=== PATIENT | female | born 1945 | race Caucasian/White ===

== ENCOUNTER → 2016-03-30 | Outpatient (CLI) | payer MEDICARE ==
[~2016-03-30] MED LIST: /PRAV20TA PO; /TIOT18INH INH; ACET65TA OR; AMLO10TA OR; ASPI325T OR; ASPI81TA83 OR; COLA100C2 OR; COMBVENT INH; FERR325T PO; GLUC1000 OR; GLUC1000 PO; INSULANT SC; INSULIN LANTUS SC; METF500T4 PO; MULTIVIT OR; NOVO70VL SC; NOVOINJ3 SC; OMEP20TA7 OR; PLAV75TA2 OR; PROZ20CA PO; VICO5TAB OR; ZOCO40TA OR; insulin aspart SC; magnesium oxide OR
--- NOTE | 2016-03-30 22:19 | REP ---
PA chest with left rib series 03/30/2016 Indication: Left-sided rib pain Comparison PA and lateral chest 01/31/2015 Findings: The cardiac silhouette is of upper normal size. There is tortuosity of the thoracic aorta. Small amount of biapical pleural thickening/scarring is again noted without change. There is mild bilateral hyperinflation There is mild mid to lower thoracic dextro scoliosis, unchanged. There is no pneumothorax. The left ribs are without acute fracture or deformity . Small small punctate radiodensity is present in region of left breast tissue, may represent superimposed debris, skin or soft tissue marker. Nuchal clips are present in right upper quadrant. Impression : Cardiac silhouette is of upper normal size. Tortuous thoracic aorta Biapical pleural thickening/scarring Left ribs without fracture or deformity Signed by Kamryn Malik MD 03/30/2016 10:10 P
== END ==
LOC: M LRY 11:49
PROVIDERS: ATTEND Nurse Practitioner Family
DX: I77.1 Stricture of artery (principal); J92.9 Pleural plaque without asbestos
CPT/HCPCS: 71101; G0463

== ENCOUNTER → 2016-05-13 | Outpatient (CLI) | payer MEDICARE ==
--- NOTE | 2016-05-13 13:42 | REP ---
CT LOW DOSE SCREENING LUNGS: Low dose CT imaging is performed on the lungs in the axial plane. Comparison is made with prior CT of 09/11/2011. Scattered interstitial fibrotic changes are again seen bilaterally. Focal benign calcification is seen anteriorly in the right apex. Focal nodular scarring is seen in the right upper lobe and another focal area is seen in the left upper lobe, unchanged. No new suspicious nodular opacities are seen. No consolidative infiltrate is seen. There is no pleural effusion. Heart is upper limits of normal in size. IMPRESSION: Chronic fibrotic changes without suspicious nodular opacity. Signed by Justino Nash MD 05/13/2016 03:56 P
== END ==
LOC: M RAD 12:43
PROVIDERS: ATTEND Nurse Practitioner
DX: F17.200 Nicotine dependence, unspecified, uncomplicated (principal)

== ENCOUNTER → 2016-06-01 | Outpatient (REF) | payer MEDICARE | LOC: M SFHCCLAY 06:38 | PROVIDERS: ATTEND Nurse Practitioner | DX: E11.8 Type 2 diabetes mellitus with unspecified complications (principal); D50.9 Iron deficiency anemia, unspecified; E83.42 Hypomagnesemia | CPT/HCPCS: 80053; 80061; 82728; 83036; 83550; 83735; 85027; G0463 ==

== ENCOUNTER 2016-09-15 10:25 | Observation (INO) | payer MEDICARE, MEDICAID ==
[~2016-09-15] VITALS: Ht 165.1 cm; Wt 54.3 kg
[2016-09-15 12:05] LABS: BASO # 0.1 K/mm3 (0.0-0.2); BASO % 0.6 % (0.0-1.0); EOS % 0.5 % (0.0-3.0); LARGE UNSTAINED CELL # 0.1 K/mm3 (0.0-0.4); LARGE UNSTAINED CELL % 1.2 % (0.0-4.0); LYMPH # 1.3 K/mm3 (1.5-4.5); LYMPH % 13.4 % (24.0-44.0); MEAN CORPUSCULAR HEMOGLOBIN 32.4 pg (27.0-33.0); MEAN CORPUSCULAR HGB CONC 33.6 g/dl (32.0-36.5); MEAN CORPUSCULAR VOLUME 96.5 fl (80.0-96.0); MONO # 0.3 K/mm3 (0.0-0.8); MONO % 3.6 % (0.0-5.0); NEUTROPHILS # 7.3 K/mm3 (1.8-7.7); NEUTROPHILS % 80.8 % (36.0-66.0); PLATELET COUNT, AUTOMATED 334 k/mm3 (150-450); RED CELL DISTRIBUTION WIDTH 12.4 % (11.5-14.5)
[2016-09-15 12:12] LABS: INR 0.91
[2016-09-15 12:25] LABS: ALBUMIN 3.3 GM/DL (3.2-5.2); ALBUMIN/GLOBULIN RATIO 0.92 (1.00-1.93); ALKALINE PHOSPHATASE 80 U/L (45-117); ALT/SGPT 24 U/L (12-78); ANION GAP 6 MEQ/L (8-16); AST/SGOT 21 U/L (15-37); BILIRUBIN,DIRECT < 0.1 MG/DL (0.0-0.2); BILIRUBIN,TOTAL 0.4 MG/DL (0.2-1.0); BLOOD UREA NITROGEN 11 MG/DL (7-18); CALCIUM LEVEL 8.6 MG/DL (8.8-10.2); CARBON DIOXIDE LEVEL 29 MEQ/L (21-32); CHLORIDE LEVEL 102 MEQ/L (98-107); CREATININE FOR GFR 0.52 MG/DL (0.55-1.02); GLOMERULAR FILTRATION RATE > 60.0 (>39); GLUCOSE, FASTING 93 MG/DL (83-110); SODIUM LEVEL 137 MEQ/L (136-145); TOTAL PROTEIN 6.9 GM/DL (6.4-8.2)
[2016-09-15] MEDS ORDERED: GASTROGRAFIN SOLUTION 30ML (Q9963) As Ordered ONE (12:46)
[2016-09-15] MEDS ORDERED: DEXTROSE 50% 50 ML SYRINGE IV STA (12:46)
[2016-09-15] MEDS ORDERED: DEXTROSE 50% 50 ML SYRINGE As Ordered ONE (12:46)
[2016-09-15] MEDS ORDERED: GASTROGRAFIN SOLUTION 30ML PO ONE (12:55)
--- NOTE | 2016-09-15 12:55 | REP ---
Clinical: Cerebrovascular accident. Comparison: 12/14/2010 . Findings: Age-related atrophy and microvascular ischemic changes are appreciated. The ventricles and sulci are symmetric. Nash-white differentiation is maintained. There is no evidence for acute intracranial hemorrhage, mass/mass effect, pathology or infarction. No extra-axial fluid collection. Calvarium is intact. Paranasal sinuses and mastoid air cells are clear. Impression: Age related atrophy and microvascular ischemic changes. No acute intracranial hemorrhage, infarction, or mass/mass effect. Signed by Dougie Corado MD 09/15/2016 12:47 P
[2016-09-15] MEDS ORDERED: GASTROGRAFIN SOLUTION 30ML (Q9963) PO ONE (13:25)
--- NOTE | 2016-09-15 13:32 | REP ---
Clinical: Chest pain and dyspnea. Pneumonia . Comparison: 03/30/2016 . Technique: PA and lateral. Findings: The mediastinum and cardiac silhouette are normal. The lung rossi are clear and without acute consolidation, effusion, or pneumothorax. The skeletal structures are intact and normal. Impression: 1. No acute cardiopulmonary process. Signed by Dougie Corado MD 09/15/2016 01:24 P
[2016-09-15] MEDS ORDERED: ISOVUE-370 76% 100ML VIAL (Q9967) As Ordered ONE (14:14)
--- NOTE | 2016-09-15 15:08 | REP ---
Clinical: Lower abdominal pain. Technique: A axial contrast enhanced images from the lung bases to the pubic symphysis using oral and 100 ml Isovue 370 intravenous contrast material with coronal and sagittal re-formations. Comparison: 12/10/2005. Findings: The lung bases are clear. Visualized heart and pericardium normal. Liver, spleen, pancreas, bilateral adrenal glands and kidneys are normal. The patient is status post cholecystectomy. Moderate to significant retained fecal material suggests fecal stasis and possible ileus with constipation. No bowel obstruction. No acute inflammatory process identified. Pelvis demonstrates normal bladder and evidence of prior hysterectomy. No ascites. No free air. No obvious adenopathy. Abdominal aorta demonstrates atherosclerotic changes without aneurysm. Musculoskeletal structures demonstrate degenerative changes to the lumbosacral spine without focal osseous abnormality. Impression: Moderate to significant retained fecal material suggesting fecal stasis/constipation and ileus. Signed by Dougie Corado MD 09/15/2016 02:59 P
[2016-09-15] MEDS ORDERED: D5W/0.45% SODIUM CHLORIDE 1,000 ML IV SCH ×2 (16:30→21:30)
--- NOTE | 2016-09-15 17:37 | REP ---
MRA BRAIN WITHOUT CONTRAST: HISTORY: Infarction. 3D TOF MR angiography was performed at the level of the [place]. There is no aneurysm or arteriovenous malformation. Mild atherosclerotic disease involves the cavernous internal carotid arteries. 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 There is origin of the right posterior cerebral artery. Major intracranial vessels are patent. The left vertebral artery is dominant. The right vertebral artery terminates in the right posterior inferior cerebellar artery. IMPRESSION: 1. There is no aneurysm or arteriovenous malformation. 2. Atherosclerotic disease as described above. Signed by Villa Liu MD 09/15/2016 06:20 P
[2016-09-15] MEDS ORDERED: MAGN400T PO (18:04)
[2016-09-15] MEDS ORDERED: FLUO20CA8 PO (18:04)
[2016-09-15] MEDS ORDERED: ASPI1TAB PO (18:04)
[2016-09-15] MEDS ORDERED: INSULANT SC ×2 (18:04→18:10)
[2016-09-15] MEDS ORDERED: MAGN420T PO (18:04)
[2016-09-15] MEDS ORDERED: METF10004 PO (18:04)
[2016-09-15] MEDS ORDERED: CLOP75TA2 PO (18:06)
[2016-09-15] MEDS ORDERED: LEVO25TA5 PO (18:06)
[2016-09-15] MEDS ORDERED: REPA1TAB4 PO (18:06)
[2016-09-15] MEDS ORDERED: ZOCO20TA PO (18:10)
--- NOTE | 2016-09-15 18:46 | REP ---
MRI BRAIN WITHOUT CONTRAST: HISTORY: Infarction. COMPARISON: 06/26/[address] 09/15/2016. An area of increased signal intensity on T2-weighted images is present in the right basal ganglia, internal capsule and centrum semiovale. This represents an old lacunar infarction. A small chronic hemorrhagic component is present. Areas of increased signal intensity on T2-weighted images are present in the periventricular and subcortical white matter. This represents small vessel ischemic disease. There is no acute intraparenchymal hemorrhage, acute infarct, mass or midline shift. The ventricular system and cortical sulci are dilated consistent with mild volume loss. There is no extracerebral collection. Mucosal thickening is present in the left maxillary sinus. IMPRESSION: 1. Old right basal ganglia , internal capsule and centrum semiovale lacunar infarction. 2. Small vessel ischemic disease. 3. Mild volume loss. Signed by Villa Liu MD 09/15/2016 07:21 P
[2016-09-15] MEDS ORDERED: ACETAMINOPHEN TAB 650MG DOSE (2X325MG) PO PRN (20:00)
[2016-09-15] MEDS ORDERED: ONDANSETRON 4MG/2ML VIAL (J2405) IV PRN (20:00)
[2016-09-15] MEDS ORDERED: SENNA 8.6 MG TAB (SENOKOT) PO PRN (20:00)
--- NOTE | 2016-09-15 20:48 | HPE ---
DATE OF ADMISSION: 09/15/2016 CHIEF COMPLAINT: 71-year-old female coming in complaining of weakness. HISTORY OF PRESENT ILLNESS: This is a 71-year-old female with significant past medical history of diabetes, old CVA, hypothyroidism, hyperlipidemia, coming in complaining of weakness for 1 week and slurred speech secondary due to weakness when she woke up at 9 a.m. today with generalized abdominal discomfort. Patient states that she felt weak this morning but has been progressively feeling weak within the past week. Today, she checked her sugar and noticed her sugar was 40, ate a donut, her weakness slowly improved and her speech slightly improved, but unfortunately she still felt weak, therefore came to the emergency room for further evaluation. In the emergency room, patient was noted to have a fingerstick of 42 and was given dextrose 50% (D50) and subsequently placed on dextrose 5% (D5) half normal saline upon my recommendation. Patient was evaluated for a stroke, including CT of the head, which did now show any acute process. In addition, patient did have MRI/MRA of the brain which did not find anything acute but did find an old right basal ganglia, internal capsule and centrum semiovale lacunar infarction, small vessel ischemic disease, and mild volume loss, but nothing acute, and Dr. Ambrocio, the neurologist, was consulted by the emergency room (ER) physician who recommended admission and MRI/MRA of the brain. Based on my conversation with the ER physician, it was believed that it was not an official consult at this time. Patient currently utilizes aspirin and Plavix at this time from home. Patient was evaluated in the emergency room. Initially, as per ER physician, NIH scale was zero. On my examination, again, NIH scale was zero. Patient states that her weakness is slightly improved and her speech is slightly improved due to regaining some strength, but still feels weak. Patient has some generalized abdominal discomfort and had a CT of the abdomen which only showed constipation and ileus. Patient otherwise denies of any fever, chills, cough, sputum production. Abdominal pain as mentioned above, but no dysuria or diarrhea. Patient denies of chest pain and shortness of breath, but did have some dizziness associated with the weakness. Currently, dizziness is improved. REVIEW OF SYSTEMS: Ten point review of systems is negative other than those described in the history of present illness (HPI). PAST MEDICAL HISTORY: Significant for diabetes, CVA in the past, hypothyroidism, and hyperlipidemia. SURGICAL HISTORY: Includes a hysterectomy and appendectomy. SOCIAL HISTORY: Patient denies of any alcohol or drug abuse, but smokes half a pack a day "for a long time." ALLERGIES: Patient is allergic to IBUPROFEN, LATEX, PENICILLIN, SULFA, SULFAMETHOXAZOLE and TRIMETHOPRIM. PENICILLIN causes a rash. NONSTEROIDAL ANTI-INFLAMMATORY DRUGS (NSAIDs) also cause difficulty breathing and BACTRIM causes pain. HOME MEDICATIONS: Are as follows: - aspirin 81 mg once a day nightly - Plavix 75 mg nightly - fluoxetine 20 mg by mouth nightly - insulin Lantus 10 units subcutaneous in the morning - Lantus subcutaneous 8 units nightly - Synthroid 25 mcg nightly - magnesium oxide 420 mg times two tablets by mouth nightly - metformin 1000 mg by mouth twice a day - repaglinide 1 mg by mouth twice a day W and M - simvastatin 20 mg by mouth nightly FAMILY MEDICAL HISTORY: Noncontributory at this time. VITAL SIGNS: Temperature: None for me to review at this time. Heart rate is 48, last known blood pressure was 177/81, saturating 96% on room air, again will talk to the ER about repeating vital signs. HEENT: Normocephalic. No trauma noted. Inspection of the eyes, nose, and throat is within normal. Pupils equal, round, and reactive to light and accommodation. Mucous is moist. Neck is supple. No tracheal deviation. CARDIAC: S1, S2, regular rate and rhythm. Pulses present. LUNGS: Equal air entry. Did not hear any wheezes, rales, or rhonchi. ABDOMEN: Soft, nontender. Bowel sounds present. LOWER EXTREMITIES: No significant pitting edema. Capillary refill present in all four extremities. SKIN: Is intact, warm to touch, afebrile. The patient is currently awake, alert and oriented times three. Cranial nerves grossly intact. Motor and sensory is intact. Normal mood and affect for current situation. Patient, again, is awake and alert, answers multiple questions without difficulty. Performs multiple tasks without difficulty. Has normal gaze, normal visual field, no facial palsy noted. Upper and lower extremity no motor drift. No limb ataxia noted. Sensory is intact. No aphasia. No dysarthria. Extension and attention intact. Patient states that her speech is improved, but she still feels weak. DIAGNOSTIC STUDY: Patient had a WBC, hemoglobin and hematocrit, all within normal. Complete metabolic profile is within normal except for creatinine of 0.52, calcium is 8.6. Cardiac enzymes within normal. Lipase is within normal. Coagulation studies: INR is within normal, PT is 12.3. Urinalysis is negative for a urinary tract infection but does show glucose of 1. Miscellaneously, patient had a glucose of 42 initially and improved to 149 after therapy. Patient's urine culture is pending. CT of the head, as per radiology, showed age related atrophy and microvascular ischemic changes. No acute intracranial hemorrhage, infarction, or mass effect. Chest x-ray, as per radiology, showed no acute cardiopulmonary process. Abdominal CT showed moderate to significant retained fecal material suggesting a fecal stasis, constipation, and ileus. Brain MRI showed, as per radiology, old right basal ganglia, internal capsule, and centrum semiovale lacunar infarction, small vessel ischemic disease, and mild volume loss. MRA of the brain showed no aneurysm or arteriovenous (AV) malformation. Atherosclerotic disease. On the EKG, patient has a heart rate of 50, sinus bradycardia. ASSESSMENT AND PLAN: This is a 71-year-old female with significant past medical history of diabetes, old CVA, hypothyroidism, hyperlipidemia, who presents complaining of weakness and slurring speech at 9 a.m. this morning. 1. Weakness and slurring of speech, most likely secondary due to hypoglycemia. At this time, patient to resume dextrose 5% (D5) half normal saline and hold Lantus, metformin, and repaglinide. Patient's MRI/MRA has been negative for any acute process. Will defer further evaluation by neurology consult to the morning team. 2. Old CVA history. Resume aspirin and Plavix. Again, defer neurology consult to the morning team. 3. Fecal stasis, constipation/ileus. Gentle IV fluid as mentioned above. Stool softener with Senna and MiraLAX. On my examination, patient did not have any guarding nor rigidity and no rebound tenderness. Continue to monitor for bowel movement. Will defer any need for surgical consult to the morning team. 4. Bradycardia. Asymptomatic. Treat problem #1. Continue to monitor. 5. Hypothyroidism. Resume Synthroid. 6. Hyperlipidemia. Resume simvastatin. 7. Resume fluoxetine. 8. Deep venous thrombosis (DVT) prophylaxis. 9. Smoking cessation was strongly advised, will offer a nicotine patch.
[2016-09-15] MEDS ORDERED: GLUCOSE 4 GM CHEW TABLET PO PRN (21:30)
[2016-09-15] MEDS ORDERED: DEXTROSE 50% 50 ML SYRINGE IV PRN (21:30)
[2016-09-15] MEDS ORDERED: GLUCAGON FOR INJ 1 MG VIAL (J1610) SC PRN (21:30)
[2016-09-15] MEDS: HumaLOG INSULIN (NovoLOG) PER UNIT SC SCH (22:20)
[2016-09-15 22:30] VITALS: BP 146/67
[2016-09-15] MEDS: SIMVASTATIN 20 MG TAB PO SCH (22:59)
[2016-09-15] MEDS: LEVOTHYROXINE 25MCG TABLET (0.025MG) PO SCH (22:59)
[2016-09-15] MEDS: CLOPIDOGREL 75 MG TAB PO SCH (22:59)
[2016-09-15] MEDS: ASPIRIN 81 MG ENTERIC TAB PO SCH (22:59)
[2016-09-15] MEDS: FLUoxetine 20 MG CAP PO SCH (22:59)
[2016-09-15] MEDS: HEPARIN SOD (PORCINE) 5000 UNITS/ML VIAL SC SCH (23:00)
[2016-09-16 04:00] VITALS: BP 134/62
[2016-09-16] MEDS: HEPARIN SOD (PORCINE) 5000 UNITS/ML VIAL SC SCH ×3 (06:15→21:38)
[2016-09-16] MEDS: HumaLOG INSULIN (NovoLOG) PER UNIT SC SCH ×4 (07:30→21:40)
--- NOTE | 2016-09-16 07:33 | ECGEPIP ---
Stationary ECG Study [facility] - ED Test Date: 2016-09-15 Pat Name: BERNA MAY Department: Room: - Gender: F [employer] War[employer] Operator: OSCAR : 1945 Requested By: Komal Barrios Order Number: [id number] Reading MD: Komal Barrios Measurements Intervals [place] Rate: 50 P: 65 AR: 153 QRS: 75 QRSD: 88 T: 65 QT: 469 QTc: 429 Interpretive Statements SINUS BRADYCARDIA ?INFERIOR INFARCT NSTTW ABNORMALITY Electronically Signed On 09-16-2016 7:33:25 EDT by Komal Barrios
[2016-09-16 08:00] VITALS: BP 155/66
[2016-09-16 08:33] LABS: BASO % 0.7 % (0.0-1.0); EOS # 0.2 K/mm3 (0.0-0.50); EOS % 2.2 % (0.0-3.0); LARGE UNSTAINED CELL # 0.1 K/mm3 (0.0-0.4); LYMPH # 1.4 K/mm3 (1.5-4.5); LYMPH % 19.9 % (24.0-44.0); MEAN CORPUSCULAR HEMOGLOBIN 32.9 pg (27.0-33.0); MEAN CORPUSCULAR HGB CONC 33.4 g/dl (32.0-36.5); MEAN CORPUSCULAR VOLUME 98.4 fl (80.0-96.0); MONO # 0.4 K/mm3 (0.0-0.8); MONO % 5.3 % (0.0-5.0); NEUTROPHILS # 4.9 K/mm3 (1.8-7.7); NEUTROPHILS % 69.9 % (36.0-66.0); PLATELET COUNT, AUTOMATED 332 k/mm3 (150-450); RED CELL DISTRIBUTION WIDTH 12.4 % (11.5-14.5)
[2016-09-16] MEDS: MIRALAX *UNIT DOSE* 17GM PACKET PO SCH (08:48)
[2016-09-16] MEDS: NICOTINE 7 MG/24 HR TRANSDERMAL TD SCH (08:49)
[2016-09-16 09:43] LABS: ANION GAP 4 MEQ/L (8-16); BLOOD UREA NITROGEN 6 MG/DL (7-18); CALCIUM LEVEL 8.8 MG/DL (8.8-10.2); CARBON DIOXIDE LEVEL 32 MEQ/L (21-32); CHLORIDE LEVEL 102 MEQ/L (98-107); CREATININE FOR GFR 0.63 MG/DL (0.55-1.02); GLOMERULAR FILTRATION RATE > 60.0 (>39); GLUCOSE, FASTING 323 MG/DL (83-110); POTASSIUM SERUM 4.3 MEQ/L (3.5-5.1); SODIUM LEVEL 138 MEQ/L (136-145)
[2016-09-16 12:00] VITALS: BP 118/67
[2016-09-16 17:20] VITALS: BP 143/65
--- NOTE | 2016-09-16 17:34 | IPNPDOC ---
Subjective Date Seen The patient was seen on 09/16/16. Subjective Chief Complaint/HPI The patient is a 71-year-old female admitted with a reason for visit of Bradycardia,Constipation,Hypoglycemia,Ileus. Events since last encounter She reports that she's had decreased episodes of the vague confusion feeling in her head since she was admitted. She is still having some symptoms however. She was noted to be hypoglycemic a couple times while down in the ER. However, when I question her further it seems that many of these symptoms have been going on for 2 months or more; they have just became more intense in the last couple days which encouraged her her to seek care. General: Reports: Fatigue Constitutional: Reports: Malaise, Denies: Chills, Fever Eyes: Denies: Eyelid inflammation Skin: Denies: Jaundice, Breakdown Pulmonary: Denies: Cough Cardiovascular: Denies: Chest Pain, Palpitations Gastrointestinal: Reports: Constipation Genitourinary: Denies: Dysuria Hematologic: Denies: Bruising Neurological: Reports: Weakness, Numbness, Incoordination, Change in speech, Confusion, Denies: Seizures Psych: Reports: Anxiety Objective Physical Examination General Exam: Positive: Alert, Cooperative, No Acute Distress Eye Exam: Positive: PERRLA, Negative: Sclera icteric ENT Exam: Positive: Mucous membr. moist/pink, Tongue Midline Neck Exam: Negative: Lymphadenopathy Chest Exam: Positive: Clear to auscultation, Normal air movement Heart Exam: Positive: Rate Normal, Normal S1, Normal S2, Negative: Murmurs Abdomen Exam: Positive: Normal bowel sounds, Soft, Negative: Tenderness Extremity Exam: Negative: Edema Neuro Exam: Positive: Strength at 5/5 X4 ext, Cranial Nerves 3-12 NL, Negative: Normal Speech (she occasionally searches for words or pauses longer than would be typical in normal speech) Psych Exam: Positive: Anxiety, Oriented x 3 Assessment /Plan Problems (1) Weakness Status: Acute Discussed With: Nurse, Patient Problem Specific Plan: Monitor Clinically, Repeat Labs Problem Text: It is hard for me to tell whether this is truly an acute problem or an acute exacerbation of a long-standing existing problem. Right now we'll continue to follow her current treatment plan which includes ensuring she doesn' t go hypoglycemic again. However if her blood glucose levels remain reasonable she still is symptomatic, I think we should engage neurology to help us determine whether this is really an acute exacerbation of a chronic neurologic problem. (2) Hypoglycemia Status: Acute Response to Treatment: Improving Discussed With: Patient Problem Specific Plan: Monitor Clinically, Repeat Labs Problem Text: It is not clear to me why she became hypoglycemic. We've held her regimen for now. We will monitor carefully overnight. (3) Ileus Status: Acute Response to Treatment: Improving Problem Specific Plan: Monitor Clinically (4) Bradycardia Status: Chronic Response to Treatment: Stable Problem Specific Plan: Monitor Clinically (5) H/O: CVA (cerebrovascular accident) Problem Specific Plan: Monitor Clinically Problem Text: I don't think her current symptoms are related to an acute stroke , especially because she had a negative MRI/MRA on admission. However I do think we should continue to monitor her and I ordered every 4 hours neuro checks to assist us with this monitoring. Plan/VTE VTE Prophylaxis Ordered?: Yes (subcutaneous heparin) VS, I&O, 24H, Fishbone Vital Signs/I&O Vital Signs Date Time Temp Pulse Resp B/P (MAP) Pulse Ox O2 Delivery O2 Flow Rate FiO2 09/16/16 12:00 98.0 66 20 118/67 (84) 96 Room Air I&O- Last 24 Hours up to 6 AM 09/16/16 06:00 Intake Total 780 ml Output Total 50 ml Balance 730 ml Laboratory Data 24H LABS Laboratory Tests 2 09/15/16 20:17: Total Creatine Kinase 93, Creatine Kinase MB 1.9, Creatine Kinase MB Relative Index 2.04, Troponin I < 0.02 09/15/16 22:04: Bedside Glucose (Misc Panel) 71L 09/15/16 22:31: Bedside Glucose (Misc Panel) 51L 09/15/16 22:46: Bedside Glucose (Misc Panel) 187H 09/16/16 05:17: Total Creatine Kinase 82, Creatine Kinase MB 1.3, Creatine Kinase MB Relative Index 1.58, Troponin I < 0.02 09/16/16 06:33: Bedside Glucose (Misc Panel) 399H 09/16/16 07:53: White Blood Count 7.0, Red Blood Count 4.35, Hemoglobin 14.3, Hematocrit 42.8, Mean Corpuscular Volume 98.4H, Mean Corpuscular Hemoglobin 32.9, Mean Corpuscular Hemoglobin Concent 33.4, Red Cell Distribution Width 12.4, Platelet Count 332, Neutrophils (%) (Auto) 69.9H, Lymphocytes (%) (Auto) 19.9L, Monocytes (%) (Auto) 5.3H, Eosinophils (%) (Auto) 2.2, Basophils (%) (Auto) 0.7 , Neutrophils # (Auto) 4.9, Lymphocytes # (Auto) 1.4L, Monocytes # (Auto) 0.4, Eosinophils # (Auto) 0.2, Basophils # (Auto) 0.0, Large Unclassified Cells % 2.0 , Large Unclassified Cells # 0.1, Anion Gap 4L, Glomerular Filtration Rate > 60.0, Blood Urea Nitrogen 6L, Creatinine 0.63, Sodium Level 138, Potassium Level 4.3, Chloride Level 102, Carbon Dioxide Level 32, Calcium Level 8.8 09/16/16 11:35: Bedside Glucose (Misc Panel) 106 09/16/16 12:13: Total Creatine Kinase 82, Creatine Kinase MB 1.4, Creatine Kinase MB Relative Index 1.70, Troponin I < 0.02 CBC/BMP Laboratory Tests 09/16/16 07:53 Red Blood Count 4.35, Mean Corpuscular Volume 98.4 H, Mean Corpuscular Hemoglobin 32.9, Mean Corpuscular Hemoglobin Concent 33.4, Red Cell Distribution Width 12.4, Neutrophils (%) (Auto) 69.9 H, Lymphocytes (%) (Auto) 19.9 L, Monocytes (%) (Auto) 5.3 H, Eosinophils (%) (Auto) 2.2, Basophils (%) ( Auto) 0.7, Neutrophils # (Auto) 4.9, Lymphocytes # (Auto) 1.4 L, Monocytes # ( Auto) 0.4, Eosinophils # (Auto) 0.2, Basophils # (Auto) 0.0, Calcium Level 8.8 Microbiology Microbiology 09/15/16 Urine Culture, Received Pending Alber Adler MD Sep 16, 2016 17:34
[2016-09-16 20:00] VITALS: BP 120/59
[2016-09-16] MEDS: ASPIRIN 81 MG ENTERIC TAB PO SCH (21:38)
[2016-09-16] MEDS: SIMVASTATIN 20 MG TAB PO SCH (21:38)
[2016-09-16] MEDS: FLUoxetine 20 MG CAP PO SCH (21:38)
[2016-09-16] MEDS: LEVOTHYROXINE 25MCG TABLET (0.025MG) PO SCH (21:38)
[2016-09-16] MEDS: CLOPIDOGREL 75 MG TAB PO SCH (21:38)
[2016-09-17] VITALS: BP 122/57
[2016-09-17] MEDS ORDERED: SLF 3 ML SYR IV PRN (00:45)
[2016-09-17 04:00] VITALS: BP 135/73
[2016-09-17] MEDS: HEPARIN SOD (PORCINE) 5000 UNITS/ML VIAL SC SCH ×2 (05:22→13:40)
[2016-09-17] MEDS: SLF 3 ML SYR IV SCH ×2 (05:22→13:40)
[2016-09-17] MEDS: NICOTINE 7 MG/24 HR TRANSDERMAL TD SCH (07:48)
[2016-09-17] MEDS: MIRALAX *UNIT DOSE* 17GM PACKET PO SCH (07:48)
[2016-09-17] MEDS: HumaLOG INSULIN (NovoLOG) PER UNIT SC SCH ×2 (07:50→12:31)
[2016-09-17 08:00] VITALS: BP 120/59
[2016-09-17 08:04] VITALS: BP 119/60
[2016-09-17 08:08] VITALS: BP 120/62
[2016-09-17] MEDS ORDERED: PREVNAR 13 VACCINE SYRINGE (CPT CODE:90670) IM ONE (15:00)
--- NOTE | 2016-09-18 08:06 | DSES ---
DATE OF ADMISSION: 09/15/2016 DATE OF DISCHARGE: 09/17/2016 ATTENDING PHYSICIAN: Dr. Alber Adler PRIMARY CARE PROVIDER: Sosa Mckeon HISTORY OF PRESENT ILLNESS: A 71-year-old female who presented to [facility] Emergency Room for complaints of weakness and generalized abdominal discomfort. The patient was noted to have hypoglycemia on presentation to the emergency room with minimal improvement of blood sugar after eating a doughnut, improved to 42. The patient was given D50 in the emergency room (ER) and dextrose half-normal saline intravenous (IV) fluids with improvement in the blood sugars. Workup in the emergency department (ED) included CT head, MRI, MRA, all of which were negative. CT abdomen and pelvis was obtained. It showed moderate to significant retained fecal material, suggesting fecal stasis constipation and ileus. The patient was subsequently admitted to the family medicine service. HOSPITAL COURSE: The patient had five bowel movements within the last 48 hours and had significant improvement in her abdominal pain. Blood sugars have remained stable throughout hospitalization, and the patient has continued to eat regularly during hospitalization. All of her diabetes medications were held. Physical therapy evaluated the patient today and deemed the patient appropriate to go home. However, recommending physical therapy evaluation within the home to evaluate for equipment needs and home safety. The patient did admit that she does seem to skip meals throughout the day, which she understands contributes to her hypoglycemia. She states she has been diabetic for the last 10-20 years. Was never diabetic as a child, so her history is more consistent with type 2 diabetes. On physical examination today, laboratories show sodium of 138, potassium 4.3, BUN 6, with a creatinine of 0.63, GFR greater than 60. The patient's cardiac enzymes were reviewed, and all were negative. Most recent hemoglobin and hematocrit are 14 and 42. General: The patient is resting comfortably combing her hair when I enter the room. She is alert and oriented times three. HEENT: Neck is supple without lymphadenopathy or jugular venous distention (JVD). Cardiovascular: Heart rate and rhythm are regular. Pulmonary: Lungs are clear to auscultation bilaterally. Abdomen is soft and nontender with positive bowel sounds in all four quadrants. Bilateral lower extremities are without any edema. Neurologic: She is alert and oriented times three. No resting tremor is appreciated. Psychiatric: Affect is flat. Conversation is appropriate and congruent. However, the patient is restrictive in her responses. ASSESSMENT/DISCHARGE DIAGNOSES: 1. Hypoglycemia. 2. Weakness. 3. Ileus. 4. Bradycardia. SECONDARY DIAGNOSES: 1. History of cerebrovascular accident (CVA). 2. History of insulin-dependent diabetes. 3. History of hypothyroidism. 4. History of hyperlipidemia. PLAN: The patient will be discharged home. Diet is carbohydrate-consistent. She is to monitor her blood sugars fasting and 2 hours postprandial on a daily basis and is also to log her food intake. Activity is to ambulate with the walker that she has at home, and we will send in Public Health to further evaluate what type of adaptive equipment she may need. She will followup with Dr. Dk Neff on 08/25/2016 at 11:30. The patient is discharged in stable and satisfactory condition with no further questions at time of discharge.
== END 2016-09-17 15:12 | disposition home health service (06) ==
LOC: M ED 10:25 → M ED INP 19:52 → M PCU 09-16 17:15
PROVIDERS: ADMIT Internal Medicine; ATTEND Family Medicine
DX: E16.2 Hypoglycemia, unspecified (principal); R53.1 Weakness; K56.7 Ileus, unspecified; R00.1 Bradycardia, unspecified; E11.9 Type 2 diabetes mellitus without complications; Z79.4 Long term (current) use of insulin; Z86.73 Personal history of transient ischemic attack (TIA), and cerebral infarction without residual deficits; E03.9 Hypothyroidism, unspecified; E78.4 Other hyperlipidemia; Z79.02 Long term (current) use of antithrombotics/antiplatelets; Z79.82 Long term (current) use of aspirin; Z79.899 Other long term (current) drug therapy
CPT/HCPCS: 36415; 51701; 70450; 70544; 70551; 71020; 74177; 80048; 80076; 81001; 82550; 82553; 83690; 84484; 85025; 85610; 87086; 93005; 93041; 96374; 96376; 97162; 97165; 99285; G0378; Q9963; Q9967

== ENCOUNTER → 2016-09-24 | Outpatient (REF) | payer MEDICARE ==
[~2016-09-24] MED LIST changes: +ASPI1TAB PO; +CLOP75TA2 PO; +FLUO20CA8 PO; +LEVO25TA5 PO; +MAGN400T PO; +MAGN420T PO; +METF10004 PO; +REPA1TAB4 PO; +ZOCO20TA PO
[2016-10-02 00:08] LABS: INSULIN ANTIBODY 10 uU/mL (.); ISLET CELL ANTIBODIES Negative (Neg:<1:1)
== END ==
LOC: M SFHCCLAY 12:39
PROVIDERS: ATTEND Family Medicine
DX: E11.8 Type 2 diabetes mellitus with unspecified complications (principal); Z79.4 Long term (current) use of insulin
CPT/HCPCS: 82948; 83525; 84681; 86337; 86341; G0463

== ENCOUNTER → 2016-10-14 | Outpatient (REF) | payer MEDICARE | LOC: M SFHCCLAY 11:51 | PROVIDERS: ATTEND Nurse Practitioner | DX: E11.8 Type 2 diabetes mellitus with unspecified complications (principal); N30.90 Cystitis, unspecified without hematuria | CPT/HCPCS: 81002; 87086; G0463 ==

== ENCOUNTER → 2017-01-13 | Outpatient (REF) | payer MEDICARE ==
[2017-01-14 12:00] LABS: ALBUMIN 3.7 GM/DL (3.2-5.2); ALBUMIN/GLOBULIN RATIO 1.09 (1.00-1.93); ALKALINE PHOSPHATASE 89 U/L (45-117); ALT/SGPT 19 U/L (12-78); ANION GAP 6 MEQ/L (8-16); AST/SGOT 17 U/L (7-37); BILIRUBIN,TOTAL 0.4 MG/DL (0.2-1.0); BLOOD UREA NITROGEN 9 MG/DL (7-18); CALCIUM LEVEL 9.1 MG/DL (8.8-10.2); CARBON DIOXIDE LEVEL 31 MEQ/L (21-32); CHLORIDE LEVEL 102 MEQ/L (98-107); CREATININE FOR GFR 0.52 MG/DL (0.55-1.02); GLOMERULAR FILTRATION RATE > 60.0 (>39); GLUCOSE, FASTING 53 MG/DL (83-110); POTASSIUM SERUM 3.9 MEQ/L (3.5-5.1); SODIUM LEVEL 139 MEQ/L (136-145); TOTAL PROTEIN 7.1 GM/DL (6.4-8.2)
== END ==
LOC: M SFHCCLAY 14:31
PROVIDERS: ATTEND Family Medicine
DX: E11.8 Type 2 diabetes mellitus with unspecified complications (principal)
CPT/HCPCS: 80053; 82043; 83036; G0463

== ENCOUNTER → 2017-03-10 | Outpatient (CLI) | payer MEDICARE | LOC: M RAD 14:05 | DX: M25.512 Pain in left shoulder (principal); M75.31 Calcific tendinitis of right shoulder | CPT/HCPCS: 73030 ==

== ENCOUNTER → 2017-06-01 | Outpatient (REF) | payer MEDICARE ==
[2017-06-02 12:02] LABS: ALBUMIN 3.8 GM/DL (3.2-5.2); ANION GAP 5 MEQ/L (8-16); BLOOD UREA NITROGEN 13 MG/DL (7-18); CALCIUM LEVEL 9.3 MG/DL (8.8-10.2); CARBON DIOXIDE LEVEL 32 MEQ/L (21-32); CHLORIDE LEVEL 98 MEQ/L (98-107); CREATININE FOR GFR 0.75 MG/DL (0.55-1.30); FREE T4 0.94 NG/DL (0.76-1.46); GLOMERULAR FILTRATION RATE > 60.0 (>39); GLUCOSE, FASTING 303 MG/DL (70-100); PHOSPHORUS LEVEL 3.2 MG/DL (2.5-4.9); POTASSIUM SERUM 4.4 MEQ/L (3.5-5.1); SODIUM LEVEL 135 MEQ/L (136-145)
== END ==
LOC: M SFHCCLAY 15:20
DX: E10.9 Type 1 diabetes mellitus without complications (principal)
CPT/HCPCS: 83021

== ENCOUNTER → 2017-09-13 | Outpatient (REF) | payer MEDICARE | LOC: M SFHCLERA 18:34 | DX: J02.9 Acute pharyngitis, unspecified (principal) ==

== ENCOUNTER → 2017-12-22 | Outpatient (REF) | payer MEDICARE ==
[2017-12-22 17:12] LABS: ANION GAP 7 MEQ/L (8-16); BLOOD UREA NITROGEN 12 MG/DL (7-18); CALCIUM LEVEL 9.3 MG/DL (8.8-10.2); CARBON DIOXIDE LEVEL 32 MEQ/L (21-32); CHLORIDE LEVEL 102 MEQ/L (98-107); CREATININE FOR GFR 0.67 MG/DL (0.55-1.30); GLOMERULAR FILTRATION RATE > 60.0 (>39); GLUCOSE, FASTING 253 MG/DL (70-100); POTASSIUM SERUM 4.8 MEQ/L (3.5-5.1); SODIUM LEVEL 141 MEQ/L (136-145)
[2017-12-22 17:26] LABS: ESTIMATED AVERAGE GLUCOSE 209 MG/DL (60-110); HEMOGLOBIN A1c 8.9 %
[2017-12-22 17:33] LABS: CREATININE, URINE 87.4 MG/DL; MALB URINE SIEMENS 25.6 MG/L
[2017-12-22 17:57] LABS: MAU/CREAT RATIO 29.3 MCG/MG (0.0-30.0)
== END ==
LOC: M SFHCCLAY 07:25
DX: E10.9 Type 1 diabetes mellitus without complications (principal); Z79.4 Long term (current) use of insulin
CPT/HCPCS: 83036

== ENCOUNTER → 2018-01-16 | Outpatient (CLI) | payer MEDICARE | LOC: M RAD 11:14 | DX: Z12.31 Encounter for screening mammogram for malignant neoplasm of breast (principal) | CPT/HCPCS: 77067 ==

== ENCOUNTER → 2018-03-22 | Outpatient (REF) | payer MEDICARE ==
[2018-03-22 18:15] LABS: BLOOD UREA NITROGEN 12 MG/DL (7-18); CARBON DIOXIDE LEVEL 30 MEQ/L (21-32); CHLORIDE LEVEL 98 MEQ/L (98-107); CREATININE FOR GFR 0.71 MG/DL (0.55-1.30); GLOMERULAR FILTRATION RATE > 60.0 (>39); GLUCOSE, FASTING 295 MG/DL (70-100); POTASSIUM SERUM 4.4 MEQ/L (3.5-5.1); SODIUM LEVEL 133 MEQ/L (136-145)
[2018-03-22 18:40] LABS: HEMOGLOBIN A1c 9.9 %
== END ==
LOC: M SFHCCLAY 12:42
PROVIDERS: ATTEND Family Medicine
DX: E10.40 Type 1 diabetes mellitus with diabetic neuropathy, unspecified (principal); E03.9 Hypothyroidism, unspecified; Z23 Encounter for immunization
CPT/HCPCS: 80048; 83036; 84439; 84443; 90682; G0008; G0463

== ENCOUNTER → 2018-04-11 | Outpatient (REF) | payer MEDICARE | LOC: M SFHCLERA 13:19 | PROVIDERS: ATTEND Nurse Practitioner Family | DX: R34 Anuria and oliguria (principal) | CPT/HCPCS: 81002; 87088; 87186; 90471; 90715; G0463 ==

== ENCOUNTER 2018-04-14 13:13 | Emergency (ER) | payer MEDICARE ==
[~2018-04-14] VITALS: Ht 172.7 cm; Wt 58.2 kg
[2018-04-14 14:48] LABS: BASO # 0.1 10^3/uL (0.0-0.2); BASO % 0.9 % (0.0-1.0); EOS # 0.2 10^3/uL (0.0-0.50); EOS % 1.9 % (0.0-3.0); HEMATOCRIT 40.8 % (36.0-47.0); LYMPH # 2.4 10^3/uL (1.5-4.5); MEAN CORPUSCULAR HEMOGLOBIN 32.3 pg (27.0-33.0); MEAN CORPUSCULAR HGB CONC 34.3 g/dl (32.0-36.5); MONO # 0.5 10^3/uL (0.0-0.8); MONO % 6.8 % (0.0-5.0); NEUTROPHILS # 4.6 10^3/uL (1.8-7.7); NEUTROPHILS % 59.3 % (36.0-66.0); PLATELET COUNT, AUTOMATED 278 10^3/uL (150-450); RED BLOOD COUNT 4.34 10^6/uL (4.00-5.40); WHITE BLOOD COUNT 7.8 10^3/uL (4.0-10.0)
[2018-04-14 15:08] LABS: BLOOD UREA NITROGEN 13 MG/DL (7-18); CALCIUM LEVEL 8.9 MG/DL (8.8-10.2); CARBON DIOXIDE LEVEL 30 MEQ/L (21-32); CHLORIDE LEVEL 102 MEQ/L (98-107); CREATININE FOR GFR 0.56 MG/DL (0.55-1.30); GLOMERULAR FILTRATION RATE > 60.0 (>39); GLUCOSE, FASTING 90 MG/DL (70-100); SODIUM LEVEL 137 MEQ/L (136-145)
[2018-04-14 15:27] VITALS: BP 135/64
== END 2018-04-14 15:28 | disposition home or self-care (01) ==
LOC: M ED 13:13
DX: R39.198 Other difficulties with micturition (principal); I10 Essential (primary) hypertension; J44.9 Chronic obstructive pulmonary disease, unspecified; F17.210 Nicotine dependence, cigarettes, uncomplicated; Z87.19 Personal history of other diseases of the digestive system; Z87.440 Personal history of urinary (tract) infections; Z88.8 Allergy status to other drugs, medicaments and biological substances; Z88.2 Allergy status to sulfonamides; Z88.0 Allergy status to penicillin; Z79.899 Other long term (current) drug therapy; Z79.82 Long term (current) use of aspirin; Z79.02 Long term (current) use of antithrombotics/antiplatelets

== ENCOUNTER → 2018-04-29 | Outpatient (CLI) | payer MEDICARE | LOC: M LAB 12:26 | PROVIDERS: ATTEND Family Medicine | DX: E10.40 Type 1 diabetes mellitus with diabetic neuropathy, unspecified (principal) ==

== ENCOUNTER → 2018-05-02 | Outpatient (REF) | payer MEDICARE ==
[2018-05-03 14:16] LABS: HEMOGLOBIN A1c 9.9 %
== END ==
LOC: M SFHCCLAY 14:57
PROVIDERS: ATTEND Family Medicine
DX: R33.9 Retention of urine, unspecified (principal); E10.40 Type 1 diabetes mellitus with diabetic neuropathy, unspecified
CPT/HCPCS: 83036; G0463

== ENCOUNTER → 2018-05-19 | Outpatient (CLI) | payer MEDICARE | LOC: M LAB 15:58 | PROVIDERS: ATTEND Family Medicine | DX: E10.40 Type 1 diabetes mellitus with diabetic neuropathy, unspecified (principal) ==

== ENCOUNTER → 2018-05-19 | Outpatient (REF) | payer MEDICARE ==
[2018-05-19 18:33] LABS: AMORPHOUS SEDIMENT SMALL (NEGATIVE); BACTERIA, URINE AUTO 1+ (NEGATIVE); MUCUS, URINE SMALL (NEGATIVE); RBC, URINE AUTO 2 /HPF (0-3); SQUAMOUS EPITHELIAL CELL UR AU 5 /HPF (0-6); WBC, URINE AUTO 0 /HPF (0-3)
== END ==
LOC: M SMT 16:58
PROVIDERS: ATTEND Specialist
DX: R39.198 Other difficulties with micturition (principal); E10.40 Type 1 diabetes mellitus with diabetic neuropathy, unspecified
CPT/HCPCS: 36415; 81015; 82947; 87086; G0463

== ENCOUNTER → 2018-06-08 | Outpatient (CLI) | payer MEDICARE | LOC: M LAB 12:32 | PROVIDERS: ATTEND Family Medicine | DX: E10.40 Type 1 diabetes mellitus with diabetic neuropathy, unspecified (principal) ==

== ENCOUNTER → 2018-08-01 | Outpatient (REF) | payer MEDICARE ==
[~2018-08-01] MED LIST changes: -/PRAV20TA PO; -/TIOT18INH INH; -ASPI1TAB PO; +ASPI81TA26 PO; +PRAV1TAB39 PO; +SPIR1CAP INH
== END ==
LOC: M SFHCLERA 15:47
PROVIDERS: ATTEND Nurse Practitioner Family
DX: J02.9 Acute pharyngitis, unspecified (principal)

== ENCOUNTER → 2018-08-22 | Outpatient (REF) | payer MEDICARE ==
[2018-08-22 17:02] LABS: BLOOD UREA NITROGEN 10 MG/DL (7-18); CALCIUM LEVEL 9.5 MG/DL (8.8-10.2); CARBON DIOXIDE LEVEL 31 MEQ/L (21-32); CHLORIDE LEVEL 103 MEQ/L (98-107); CREATININE FOR GFR 0.63 MG/DL (0.55-1.30); GLOMERULAR FILTRATION RATE > 60.0 (>39); GLUCOSE, FASTING 118 MG/DL (70-100); POTASSIUM SERUM 4.5 MEQ/L (3.5-5.1); SODIUM LEVEL 139 MEQ/L (136-145)
== END ==
LOC: M SFHCCLAY 10:21
PROVIDERS: ATTEND Family Medicine
DX: E10.9 Type 1 diabetes mellitus without complications (principal)
CPT/HCPCS: 80048; 83036; G0463

== ENCOUNTER → 2018-10-25 | Outpatient (REF) | payer MEDICARE ==
[2018-10-25 22:24] LABS: CHLAMYDIA DNA AMPLIFICATION NEGATIVE (NEGATIVE); GC DNA AMPLIFICATION NEGATIVE (NEGATIVE)
== END ==
LOC: M SFHCLERA 13:56
PROVIDERS: ATTEND Nurse Practitioner Family
DX: R30.0 Dysuria (principal)
CPT/HCPCS: 81002; 87088; 87186; 87661; G0463

== ENCOUNTER → 2019-01-19 | Outpatient (CLI) | payer MEDICARE, MEDICAID ==
[~2019-01-19] MED LIST changes: -MAGN400T PO; +MAGN400T3 PO
--- NOTE | 2019-01-19 17:08 | REP ---
Chest x-ray: Two views. History: Cough. Comparison chest x-ray: September 15, 2016. Findings: The lungs are symmetrically aerated and free of infiltrate. Pleural angles are sharp. Heart is mildly enlarged. Cardiothoracic ratio measures 53.2%. The aorta is calcific and tortuous. Pulmonary vasculature is not increased. No infiltrate is seen. There is a dextroconvex curvature in the lower thoracic spine. There are clips in right upper quadrant. Impression: Mild cardiomegaly. No infiltrate seen. Electronically Signed by Sagar Still MD 01/19/2019 05:21 P
== END ==
LOC: M CLY 14:55
PROVIDERS: ATTEND Family Medicine
DX: I51.7 Cardiomegaly (principal); R05 Cough; R30.0 Dysuria

== ENCOUNTER 2019-04-30 14:23 | Emergency (ER) | payer MEDICARE, MEDICAID ==
[~2019-04-30] VITALS: Ht 165.1 cm; Wt 55.0 kg
[~2019-04-30 14:23] MED LIST changes: +FLUO20CA20 PO; -FLUO20CA8 PO
[2019-04-30] MEDS ORDERED: ESSE250T PO (14:44)
[2019-04-30] MEDS ORDERED: TIZA4TAB4 PO (14:44)
[2019-04-30] MEDS ORDERED: INSUHUMDS SQ (14:44)
[2019-04-30] MEDS ORDERED: LANTINJ4 SQ (14:44)
[2019-04-30 15:11] LABS: BASO # 0.1 10^3/uL (0.0-0.2); BASO % 0.6 % (0.0-1.0); EOS # 0.1 10^3/uL (0.0-0.5); EOS % 0.9 % (0.0-3.0); HEMATOCRIT 40.2 % (36.0-47.0); HEMOGLOBIN 13.4 g/dl (12.0-15.5); LYMPH # 1.5 10^3/uL (1.5-5.0); MEAN CORPUSCULAR HGB CONC 33.3 g/dl (32.0-36.5); MEAN CORPUSCULAR VOLUME 95.9 fl (80.0-96.0); MONO # 0.6 10^3/uL (0.0-0.8); MONO % 7.1 % (0.0-5.0); NEUTROPHILS # 5.9 10^3/uL (1.5-8.5); PLATELET COUNT, AUTOMATED 378 10^3/uL (150-450); RED BLOOD COUNT 4.19 10^6/uL (4.00-5.40)
[2019-04-30 15:34] LABS: BLOOD UREA NITROGEN 11 MG/DL (7-18); CARBON DIOXIDE LEVEL 30 MEQ/L (21-32); CHLORIDE LEVEL 106 MEQ/L (98-107); CREATININE FOR GFR 0.66 MG/DL (0.55-1.30); GLOMERULAR FILTRATION RATE > 60.0 (>39); GLUCOSE, FASTING 136 MG/DL (70-100); POTASSIUM SERUM 3.7 MEQ/L (3.5-5.1); SODIUM LEVEL 141 MEQ/L (136-145)
[2019-04-30] MEDS ORDERED: IPRATROPIUM 0.5MG/ALBUTEROL 2.5MG INH SOL UD 3ML (DUONEB)(J7620) NEB ONE (15:45)
[2019-04-30 15:59] LABS: NT-PRO BNP 394 PG/ML (<125)
--- NOTE | 2019-04-30 16:13 | REP ---
Clinical: Cough and shortness of breath . Comparison: 01/19/2019 . Findings: Stable cardiomegaly and emphysematous disease. No acute consolidation or effusion. No pneumothorax. Skeletal structures stable. Impression: Chronic cardiomegaly and emphysematous disease. No focal consolidation. Electronically Signed by Dougie Corado MD 04/30/2019 04:04 P
[2019-04-30 17:00] VITALS: BP 153/67
[2019-04-30] MEDS ORDERED: predniSONE 20 MG TAB PO ONE (17:00)
[2019-04-30] MEDS ORDERED: PRED10TA2 PO (17:04)
--- NOTE | 2019-04-30 19:47 | ECGEPIP ---
[facility] - ED Test Date: 2019-04-30 Pat Name: BERNA MAY Department: Room: - Gender: Female Corporate Learning Consultant: merari : 1945 Requested By: Breezy Klein Order Number: [id number] Reading MD: Komal Barrios Measurements Intervals [place] Rate: 55 P: 77 DE: 137 QRS: 81 QRSD: 85 T: 81 QT: 468 QTc: 448 Interpretive Statements SINUS BRADYCARDIA SIMILAR 09/15/16 Electronically Signed on 04-30-2019 19:46:56 EST by Komal Barrios
== END 2019-04-30 17:32 | disposition home or self-care (01) ==
LOC: EDBD 14:23 → M ED 14:23
DX: J20.9 Acute bronchitis, unspecified (principal); R00.1 Bradycardia, unspecified; I51.7 Cardiomegaly; J43.9 Emphysema, unspecified; Z86.73 Personal history of transient ischemic attack (TIA), and cerebral infarction without residual deficits; Z88.0 Allergy status to penicillin; Z88.2 Allergy status to sulfonamides; Z88.6 Allergy status to analgesic agent; Z79.4 Long term (current) use of insulin; Z79.82 Long term (current) use of aspirin; Z79.899 Other long term (current) drug therapy

== ENCOUNTER → 2019-06-14 | Outpatient (REF) | payer MEDICARE, MEDICAID ==
[~2019-06-14] MED LIST changes: +ESSE250T PO; +INSUHUMDS SQ; +LANTINJ4 SQ; +PRED10TA2 PO; +TIZA4TAB4 PO
[2019-06-14 16:12] LABS: HEMATOCRIT 42.4 % (36.0-47.0); HEMOGLOBIN 13.8 g/dl (12.0-15.5); MEAN CORPUSCULAR HEMOGLOBIN 31.7 pg (27.0-33.0); MEAN CORPUSCULAR HGB CONC 32.5 g/dl (32.0-36.5); MEAN CORPUSCULAR VOLUME 97.2 fl (80.0-96.0); PLATELET COUNT, AUTOMATED 259 10^3/uL (150-450); RED BLOOD COUNT 4.36 10^6/uL (4.00-5.40); WHITE BLOOD COUNT 8.7 10^3/uL (4.0-10.0)
[2019-06-14 16:31] LABS: ALBUMIN 3.5 GM/DL (3.2-5.2); ALT/SGPT 16 U/L (12-78); BILIRUBIN,TOTAL 0.5 MG/DL (0.2-1.0); BLOOD UREA NITROGEN 10 MG/DL (7-18); CALCIUM LEVEL 8.7 MG/DL (8.8-10.2); CARBON DIOXIDE LEVEL 30 MEQ/L (21-32); CHLORIDE LEVEL 105 MEQ/L (98-107); CHOLESTEROL LEVEL 221 MG/DL (<200); CHOLESTEROL RISK RATIO 3.564 (<5); CREATININE FOR GFR 0.57 MG/DL (0.55-1.30); FREE T4 1.03 NG/DL (0.76-1.46); GLOMERULAR FILTRATION RATE > 60.0 (>39); GLUCOSE, FASTING 208 MG/DL (70-100); HDL CHOLESTEROL 62 MG/DL (>40); LDL CHOLESTEROL 145 MG/DL (<100); NON-HDL-C 159 MG/DL; POTASSIUM SERUM 4.5 MEQ/L (3.5-5.1); SODIUM LEVEL 140 MEQ/L (136-145); TOTAL PROTEIN 6.8 GM/DL (6.4-8.2); TRIGLYCERIDES LEVEL 72 MG/DL (<150)
[2019-06-14 16:46] LABS: CREATININE, URINE 92.8 MG/DL; MALB URINE SIEMENS 30.4 MG/L; MAU/CREAT RATIO 32.7 MCG/MG (0.0-30.0)
[2019-06-14 16:51] LABS: HEMOGLOBIN A1c 9.4 %
== END ==
LOC: M SFHCCLAY 11:03
PROVIDERS: ATTEND Family Medicine
DX: E03.9 Hypothyroidism, unspecified (principal); E10.40 Type 1 diabetes mellitus with diabetic neuropathy, unspecified; I69.30 Unspecified sequelae of cerebral infarction; E78.5 Hyperlipidemia, unspecified; Z23 Encounter for immunization
CPT/HCPCS: 80053; 80061; 82043; 83036; 84439; 84443; 85027; 90732; G0009

== ENCOUNTER → 2019-06-15 | Outpatient (CLI) | payer MEDICARE, MEDICAID ==
--- NOTE | 2019-06-15 15:12 | REP ---
REASON FOR EXAM: Chronic cough. COMPARISON: Multiple, the latest 04/30/2019. There has been no significant change from the prior exam. The lung rossi are again seen to be somewhat hyperexpanded. The heart is not enlarged and the pleural angles are sharp. There is no change in the osseous structures. IMPRESSION: No significant change. No evidence of acute cardiopulmonary disease. Electronically Signed by Kike Rojas DO 06/15/2019 03:50 P
== END ==
LOC: M LRY 14:08
PROVIDERS: ATTEND Family Medicine
DX: R05 Cough (principal)

== ENCOUNTER → 2019-09-17 | Outpatient (REF) | payer MEDICARE, MEDICAID | LOC: M SFHCLERA 11:54 | PROVIDERS: ATTEND Nurse Practitioner Family | DX: R30.0 Dysuria (principal) | CPT/HCPCS: 81002; 87086; G0463 ==

== ENCOUNTER → 2019-09-20 | Outpatient (REF) | payer MEDICARE, MEDICAID ==
[2019-09-20 17:17] LABS: BLOOD UREA NITROGEN 13 MG/DL (7-18); CALCIUM LEVEL 9.4 MG/DL (8.8-10.2); CARBON DIOXIDE LEVEL 31 MEQ/L (21-32); CHLORIDE LEVEL 101 MEQ/L (98-107); CREATININE FOR GFR 0.66 MG/DL (0.55-1.30); FREE T4 1.09 NG/DL (0.76-1.46); GLOMERULAR FILTRATION RATE > 60.0 (>39); GLUCOSE, FASTING 152 MG/DL (70-100); POTASSIUM SERUM 4.4 MEQ/L (3.5-5.1); SODIUM LEVEL 136 MEQ/L (136-145)
[2019-09-20 17:51] LABS: HEMOGLOBIN A1c 10.1 %
== END ==
LOC: M SFHCCLAY 11:30
PROVIDERS: ATTEND Family Medicine
DX: F32.9 Major depressive disorder, single episode, unspecified (principal); E10.40 Type 1 diabetes mellitus with diabetic neuropathy, unspecified; E03.9 Hypothyroidism, unspecified

== ENCOUNTER → 2019-12-04 | Outpatient (REF) | payer MEDICARE, MEDICAID | LOC: M SFHCCLAY 16:20 | PROVIDERS: ATTEND Physician Assistant | DX: R30.0 Dysuria (principal) ==

== ENCOUNTER → 2019-12-20 | Outpatient (REF) | payer MEDICARE, MEDICAID ==
[2019-12-20 16:17] LABS: HEMOGLOBIN A1c 9.4 %
[2019-12-20 16:29] LABS: BLOOD UREA NITROGEN 9 MG/DL (7-18); CARBON DIOXIDE LEVEL 31 MEQ/L (21-32); CHLORIDE LEVEL 100 MEQ/L (98-107); CHOLESTEROL LEVEL 181 MG/DL (<200); CREATININE FOR GFR 0.61 MG/DL (0.55-1.30); GLOMERULAR FILTRATION RATE > 60.0 (>39); GLUCOSE, FASTING 61 MG/DL (70-100); HDL CHOLESTEROL 78 MG/DL (>40); LDL CHOLESTEROL 91 MG/DL (<100); NON-HDL-C 103 MG/DL; POTASSIUM SERUM 3.9 MEQ/L (3.5-5.1); SODIUM LEVEL 136 MEQ/L (136-145); TRIGLYCERIDES LEVEL 60 MG/DL (<150)
[2019-12-20 16:37] LABS: CREATININE, URINE 36.9 MG/DL; MALB URINE SIEMENS 12.6 MG/L; MAU/CREAT RATIO 34.1 MCG/MG (0.0-30.0)
== END ==
LOC: M SFHCCLAY 12:42
PROVIDERS: ATTEND Family Medicine
DX: E03.9 Hypothyroidism, unspecified (principal); E10.40 Type 1 diabetes mellitus with diabetic neuropathy, unspecified; Z23 Encounter for immunization
CPT/HCPCS: 80048; 80061; 82043; 83036; 90682; G0008; G0463

== ENCOUNTER → 2020-01-16 | Outpatient (CLI) | payer MEDICARE, MEDICAID ==
--- NOTE | 2020-01-16 14:12 | REP ---
INDICATION: SMOKING GREATER THAN 30 PACK YEARS FILE ROOM. COMPARISON: X-ray 06/15/2019, low-dose lung CT 05/13/2016 TECHNIQUE: Low-dose screening lung CT protocol FINDINGS: Curvilinear fibrotic changes are seen in the medial anterior right apex stable. There is a stable curvilinear fibrotic focus more laterally. In the right apex is a 3.7 mm noncalcified nodule on image 26 anteriorly in subpleural right upper lobe. Small calcified nodule on image showed 28 anteriorly mid clavicular line, subpleural right upper lobe. Some scattered irregular foci of nodular scarring noted right upper lung zone in the parenchyma, new ones are 5.5 and 5.4 mm in greatest diameter on images 30 and 20. There other 2-3 mm subpleural nodules on the right and stable focus of scarring peripherally the lateral basal segment anteriorly just behind the major fissure in the right lower lobe on image 70. Stable fibrotic changes in the deep sulci bilaterally. In the superior segment of the left lower lobe a few scattered fibrotic areas in the left apex are again seen and stable No definite infiltrate or effusion. No other significant finding. IMPRESSION: LungRADS category 3 probably benign. New nodules in the 4-6 mm range in the right lung present. Findings warrant 6 month follow-up low-dose CT. Patients with this category of finding of a 1-2% probability of malignancy at the time of the examination. <Electronically signed by Tin Fan > 01/16/20 [id number]
== END ==
LOC: M RAD 12:43
PROVIDERS: ATTEND Family Medicine
DX: Z72.0 Tobacco use (principal); F17.200 Nicotine dependence, unspecified, uncomplicated

== ENCOUNTER → 2020-06-24 | Outpatient (REF) | payer MEDICARE, MEDICAID ==
[2020-06-24 16:35] LABS: BLOOD UREA NITROGEN 11 MG/DL (7-18); CALCIUM LEVEL 9.3 MG/DL (8.8-10.2); CARBON DIOXIDE LEVEL 32 MEQ/L (21-32); CHLORIDE LEVEL 97 MEQ/L (98-107); CREATININE FOR GFR 0.58 MG/DL (0.55-1.30); GLOMERULAR FILTRATION RATE > 60.0 (>39); GLUCOSE, FASTING 255 MG/DL (70-100); POTASSIUM SERUM 4.7 MEQ/L (3.5-5.1); SODIUM LEVEL 135 MEQ/L (136-145)
[2020-06-24 16:57] LABS: HEMOGLOBIN A1c 10.6 %
== END ==
LOC: M SFHCCLAY 11:37
PROVIDERS: ATTEND Family Medicine
DX: E10.40 Type 1 diabetes mellitus with diabetic neuropathy, unspecified (principal)

== ENCOUNTER 2020-08-05 12:15 | Emergency (ER) | payer OTHER, MEDICAID ==
[~2020-08-05] VITALS: Ht 162.6 cm; Wt 54.5 kg
[2020-08-05] MEDS ORDERED: NS 1,000 ML IV ONE (13:10)
[2020-08-05 13:40] LABS: VENOUS BASE EXCESS 4.6 (-2.0-2.0); VENOUS HCO3 30.8 MEQ/L (23.0-27.0); VENOUS O2 SATURATION 73.5 % (60.0-80.0); VENOUS PARTIAL PRESSURE CO2 52.3 mmHg (38.0-50.0); VENOUS PARTIAL PRESSURE O2 38.2 mmHg (30.0-50.0); VENOUS PH 7.388 UNITS (7.330-7.430); VENOUS STANDARD HCO3 27.9 MEQ/L; VENOUS TOTAL CO2 32.4 MEQ/L (24.0-28.0)
[2020-08-05 13:41] LABS: BASO # 0.1 10^3/uL (0.0-0.2); BASO % 0.8 % (0.0-1.0); EOS # 0.2 10^3/uL (0.0-0.5); EOS % 1.9 % (0.0-3.0); HEMATOCRIT 38.7 % (36.0-47.0); HEMOGLOBIN 13.1 g/dl (12.0-15.5); LYMPH # 1.6 10^3/uL (1.5-5.0); LYMPH % 19.4 % (24.0-44.0); MEAN CORPUSCULAR HGB CONC 33.9 g/dl (32.0-36.5); MEAN CORPUSCULAR VOLUME 94.6 fl (80.0-96.0); MONO # 0.5 10^3/uL (0.0-0.8); MONO % 5.7 % (2.0-8.0); NEUTROPHILS # 6.1 10^3/uL (1.5-8.5); PLATELET COUNT, AUTOMATED 290 10^3/uL (150-450); RED BLOOD COUNT 4.09 10^6/uL (4.00-5.40); WHITE BLOOD COUNT 8.4 10^3/uL (4.0-10.0)
[2020-08-05] MEDS ORDERED: HumuLIN R (REGULAR) INSULIN (NovoLIN R) **100U/ML** PER UNIT IV ONE (13:55)
[2020-08-05 14:00] LABS: OSMOLALITY SERUM 297 MOSM/KG (280-301)
[2020-08-05 14:07] LABS: ACETONE/KETONE 10.76 MG/DL (<2.81); ALBUMIN 3.2 GM/DL (3.2-5.2); ALT/SGPT 17 U/L (12-78); BILIRUBIN,DIRECT 0.1 MG/DL (0.0-0.2); BILIRUBIN,TOTAL 0.5 MG/DL (0.2-1.0); LIPASE 115 U/L (73-393); TOTAL PROTEIN 6.2 GM/DL (6.4-8.2)
[2020-08-05 14:18] LABS: BLOOD UREA NITROGEN 15 MG/DL (7-18); CALCIUM LEVEL 8.8 MG/DL (8.8-10.2); CARBON DIOXIDE LEVEL 28 MEQ/L (21-32); CHLORIDE LEVEL 98 MEQ/L (98-107); CREATININE FOR GFR 0.56 MG/DL (0.55-1.30); GLOMERULAR FILTRATION RATE > 60.0 (>39); GLUCOSE, FASTING 304 MG/DL (70-100); POTASSIUM SERUM 4.4 MEQ/L (3.5-5.1); SODIUM LEVEL 135 MEQ/L (136-145)
[2020-08-05] MEDS ORDERED: NITROFURANTOIN (MACROBID) 100 MG CAP PO ONE (15:55)
[2020-08-05] MEDS ORDERED: MACR100C43 PO (15:57)
[2020-08-05 18:04] VITALS: BP 151/68
--- NOTE | 2020-08-05 21:37 | ECGEPIP ---
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
== END 2020-08-05 18:49 | disposition home or self-care (01) ==
LOC: M ED 12:15
DX: E11.65 Type 2 diabetes mellitus with hyperglycemia (principal); N39.0 Urinary tract infection, site not specified; I10 Essential (primary) hypertension; F17.200 Nicotine dependence, unspecified, uncomplicated; Z79.4 Long term (current) use of insulin; Z79.890 Hormone replacement therapy; Z79.899 Other long term (current) drug therapy; Z88.0 Allergy status to penicillin; Z88.2 Allergy status to sulfonamides; Z88.1 Allergy status to other antibiotic agents; Z88.8 Allergy status to other drugs, medicaments and biological substances; Z86.73 Personal history of transient ischemic attack (TIA), and cerebral infarction without residual deficits; Z98.890 Other specified postprocedural states; Z90.49 Acquired absence of other specified parts of digestive tract

== ENCOUNTER → 2020-09-25 | Outpatient (CLI) | payer OTHER, MEDICAID ==
[~2020-09-25] MED LIST changes: +MACR100C43 PO
--- NOTE | 2020-09-25 11:06 | REP ---
INDICATION: HX OF STROKE, SMOKER COMPARISON: 01/16/2020 TECHNIQUE: Axial noncontrast images from the thoracic inlet to the upper abdomen using low-dose lung screening technique (LDCT). FINDINGS: Lung orssi are well aerated and demonstrate scattered chronic changes including scattered small stable nodular densities bilaterally. No new acute consolidation, suspicious nodule or mass. No effusion. No pneumothorax. IMPRESSION: Few scattered bilateral nodular densities measuring up to approximately 5 mm are stable compared to 01/16/2020. Lung-RADS category 2. Management recommendations include annual low-dose CT follow-up/surveillance. <Electronically signed by Dougie Corado > 09/25/20 1100
--- NOTE | 2020-09-25 14:27 | REPVR ---
PROCEDURE INFORMATION: Exam: MR Head Without Contrast Exam date and time: 09/25/2020 11:46 AM Age: 75 years old Clinical indication: Condition or disease; Cerebrovascular disease; Cerebral infarction; Unspecified; Other: Unknown; Patient HX: PT C/O frequent bouts of confusion with an unbalanced gait, slurred speech that comes and goes, prior HX CVA, PT states priors on pacs as well as most recent @ncn, nki; Additional info: HX of stroke, smoker TECHNIQUE: Imaging protocol: MR of the head without contrast. COMPARISON: MRI-Brain without Contrast 09/15/2016 4:47 PM FINDINGS: Brain: No acute infarct identified on the diffusion-weighted imaging. The brain demonstrates generalized volume loss. Patchy increased signal intensity in the deep and subcortical white matter as well as essie on the T2 weighted imaging most likely representing [id number] chronic small vessel ischemic change which is asymmetrically prominent in the right frontal lobe deep white matter, as before. There is a chronic right basal ganglia lacunar infarct demonstrating peripheral hemosiderin staining on the gradient echo imaging. Cerebral ventricles: Enlarged in keeping with volume loss. Bones/joints: The upper cervical spine is incidentally visualized on the sagittal T1 sequence. Prominent C3-C4 facet arthropathy resulting in slight grade 1 degenerative anterolisthesis. Paranasal sinuses: Mucosal thickening and nonspecific fluid in the left maxillary sinus. Mastoid air cells: Trace left mastoid fluid. Orbital cavity: Prior left lens surgery. Soft tissues: Unremarkable. IMPRESSION: No evidence of acute infarct. Electronically signed by: Vaishnavi Emerson On 09/25/2020 14:26:40 PM
== END ==
LOC: M RAD 10:30
PROVIDERS: ATTEND Family Medicine
DX: Z12.2 Encounter for screening for malignant neoplasm of respiratory organs (principal); F17.210 Nicotine dependence, cigarettes, uncomplicated

== ENCOUNTER → 2020-10-01 | Outpatient (REF) | payer OTHER, MEDICAID ==
[2020-10-02 12:43] LABS: ALT/SGPT 23 U/L (12-78); BILIRUBIN,TOTAL 0.4 MG/DL (0.2-1.0); BLOOD UREA NITROGEN 15 MG/DL (7-18); CALCIUM LEVEL 9.6 MG/DL (8.8-10.2); CARBON DIOXIDE LEVEL 33 MEQ/L (21-32); CHLORIDE LEVEL 102 MEQ/L (98-107); CHOLESTEROL LEVEL 182 MG/DL (<200); CREATININE FOR GFR 0.68 MG/DL (0.55-1.30); GLOMERULAR FILTRATION RATE > 60.0 (>39); GLUCOSE, FASTING 184 MG/DL (70-100); POTASSIUM SERUM 5.3 MEQ/L (3.5-5.1); SODIUM LEVEL 139 MEQ/L (136-145); TRIGLYCERIDES LEVEL 35 MG/DL (<150)
[2020-10-02 12:44] LABS: ALBUMIN 3.6 GM/DL (3.2-5.2); CHOLESTEROL RISK RATIO 2.426 (<5); HDL CHOLESTEROL 75 MG/DL (>40); LDL CHOLESTEROL 100 MG/DL (<100); NON-HDL-C 107 MG/DL
[2020-10-02 12:46] LABS: HEMOGLOBIN A1c 10.4 %
== END ==
LOC: M SFHCCLAY 16:05
PROVIDERS: ATTEND Family Medicine
DX: I63.81 Other cerebral infarction due to occlusion or stenosis of small artery (principal); F17.200 Nicotine dependence, unspecified, uncomplicated; E10.40 Type 1 diabetes mellitus with diabetic neuropathy, unspecified
CPT/HCPCS: 80053; 80061; 83036; G0463

== ENCOUNTER → 2020-10-20 | Outpatient (CLI) | payer OTHER, MEDICAID ==
[~2020-10-20] MED LIST changes: +ATOR40TA75 PO; +FLUO-96 PO; -FLUO20CA20 PO; +LEVO250T3 PO; +LISI20TA33 PO; -MAGN400T3 PO; +MAGN400T33 PO; +TIZA10TA PO; -TIZA4TAB4 PO
== END ==
LOC: M RAD 15:08
PROVIDERS: ATTEND Family Medicine
DX: I63.81 Other cerebral infarction due to occlusion or stenosis of small artery (principal)

== ENCOUNTER 2020-11-29 18:24 | Emergency (ER) | payer OTHER, MEDICAID ==
[~2020-11-29] VITALS: Ht 167.6 cm; Wt 53.0 kg
[~2020-11-29 18:24] MED LIST changes: -ATOR40TA75 PO; -FLUO-96 PO; +FLUO20CA20 PO; -LEVO250T3 PO; -LISI20TA33 PO; +MAGN400T3 PO; -MAGN400T33 PO; -TIZA10TA PO; +TIZA4TAB4 PO
[2020-11-29] MEDS ORDERED: ATOR40TA75 PO (18:48)
[2020-11-29] MEDS ORDERED: LISI20TA33 PO (18:48)
[2020-11-29 19:18] LABS: VENOUS BASE EXCESS 1.3 (-2.0-2.0); VENOUS HCO3 26.7 MEQ/L (23.0-27.0); VENOUS PARTIAL PRESSURE CO2 44.8 mmHg (38.0-50.0); VENOUS PARTIAL PRESSURE O2 53.6 mmHg (30.0-50.0); VENOUS PH 7.393 UNITS (7.330-7.430); VENOUS STANDARD HCO3 25.4 MEQ/L; VENOUS TOTAL CO2 28.1 MEQ/L (24.0-28.0)
[2020-11-29 19:19] LABS: VENOUS O2 SATURATION 87.5 % (60.0-80.0)
[2020-11-29 19:29] LABS: BASO # 0.1 10^3/uL (0.0-0.2); BASO % 0.5 % (0.0-1.0); EOS # 0.2 10^3/uL (0.0-0.5); EOS % 1.9 % (0.0-3.0); HEMOGLOBIN 13.5 g/dl (12.0-15.5); LYMPH # 2.2 10^3/uL (1.5-5.0); LYMPH % 20.6 % (24.0-44.0); MEAN CORPUSCULAR HGB CONC 32.9 g/dl (32.0-36.5); MEAN CORPUSCULAR VOLUME 94.3 fl (80.0-96.0); MONO # 0.6 10^3/uL (0.0-0.8); MONO % 6.1 % (2.0-8.0); NEUTROPHILS # 7.4 10^3/uL (1.5-8.5); NEUTROPHILS % 70.7 % (36.0-66.0); PLATELET COUNT, AUTOMATED 268 10^3/uL (150-450); RED BLOOD COUNT 4.35 10^6/uL (4.00-5.40); WHITE BLOOD COUNT 10.4 10^3/uL (4.0-10.0)
[2020-11-29 19:36] LABS: ACETONE/KETONE 3.79 MG/DL (<2.81); ALBUMIN 3.3 GM/DL (3.2-5.2); ALT/SGPT 24 U/L (12-78); BILIRUBIN,DIRECT 0.1 MG/DL (0.0-0.2); BILIRUBIN,TOTAL 0.3 MG/DL (0.2-1.0); BLOOD UREA NITROGEN 14 MG/DL (7-18); CALCIUM LEVEL 8.9 MG/DL (8.8-10.2); CARBON DIOXIDE LEVEL 29 MEQ/L (21-32); CHLORIDE LEVEL 104 MEQ/L (98-107); CK-MB VALUE MASS 1.6 NG/ML (<3.6); CPK CREATINE PHOSPHOKINASE 68 U/L (26-192); CREATININE FOR GFR 0.54 MG/DL (0.55-1.30); GLOMERULAR FILTRATION RATE > 60.0 (>39); GLUCOSE, FASTING 286 MG/DL (70-100); LIPASE 107 U/L (73-393); MAGNESIUM LEVEL 2.2 MG/DL (1.8-2.4); MB/CK RELATIVE INDEX 2.35 (< OR =4); PHOSPHORUS LEVEL 3.1 MG/DL (2.5-4.9); POTASSIUM SERUM 4.1 MEQ/L (3.5-5.1); SODIUM LEVEL 140 MEQ/L (136-145); TOTAL PROTEIN 6.5 GM/DL (6.4-8.2); TROPONIN I < 0.02 NG/ML (< 0.10)
[2020-11-29 19:37] LABS: OSMOLALITY SERUM 295 MOSM/KG (280-301)
[2020-11-29 19:56] LABS: HEMOGLOBIN A1c 10.8 %
--- NOTE | 2020-11-29 20:10 | REPVR ---
PROCEDURE INFORMATION: Exam: XR Chest Exam date and time: 11/29/2020 7:19 PM Age: 75 years old Clinical indication: Cough TECHNIQUE: Imaging protocol: XR of the chest. Views: 1 view. COMPARISON: CR CHEST 2 VIEW 06/15/2019 2:21 PM FINDINGS: Lungs: The lungs appear clear with no evidence of localized infiltrate. Pleural spaces: There is no evidence of pneumothorax or pleural effusion. Heart/Mediastinum: The heart is normal in size. Bones/joints: There is mild scoliosis of the lower thoracic spine convexity to the right. IMPRESSION: Clear appearing lungs. Electronically signed by: Charles Alcazar On 11/29/2020 20:10:04 PM
[2020-11-29] MEDS ORDERED: cefTRIAXone SOD 1 GM in D5W MINI-BAG PLUS 50 ML IV ONE (20:55)
[2020-11-29] MEDS ORDERED: LevoFLOXacin IV 500 MG in IV 1 EA IV ONE (21:00)
[2020-11-29] MEDS ORDERED: LEVO250T12 PO (21:00)
[2020-11-29 22:21] VITALS: BP 160/71
--- NOTE | 2020-11-30 17:13 | ECGEPIP ---
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
== END 2020-11-29 22:23 | disposition home or self-care (01) ==
LOC: M ED 18:24 → EEVIPCON 18:24 → M ED 22:23
DX: N39.0 Urinary tract infection, site not specified (principal); N10 Acute pyelonephritis; E11.9 Type 2 diabetes mellitus without complications; I10 Essential (primary) hypertension; F17.200 Nicotine dependence, unspecified, uncomplicated; F32.9 Major depressive disorder, single episode, unspecified; Z79.4 Long term (current) use of insulin; Z79.82 Long term (current) use of aspirin; Z79.899 Other long term (current) drug therapy; Z88.0 Allergy status to penicillin; Z88.1 Allergy status to other antibiotic agents; Z88.2 Allergy status to sulfonamides; Z88.6 Allergy status to analgesic agent; Z88.8 Allergy status to other drugs, medicaments and biological substances
CPT/HCPCS: 71045; 80048; 80076; 81001; 82010; 82550; 82553; 82803; 83036; 83690; 83735; 83930; 84100; 84484; 85025; 87088; 87184; 87186; 93005; 93041; 96365; 99285; J1956

== ENCOUNTER → 2020-12-10 | Outpatient (REF) | payer OTHER, MEDICAID ==
[~2020-12-10] MED LIST changes: +ATOR40TA75 PO; +LEVO250T12 PO; +LISI20TA33 PO
== END ==
LOC: M SFHCCLAY 11:37
PROVIDERS: ATTEND Physician Assistant
DX: R30.0 Dysuria (principal)
CPT/HCPCS: 81002; 87086; G0463

== ENCOUNTER → 2020-12-19 | Outpatient (CLI) | payer OTHER, MEDICAID ==
[~2020-12-19] MED LIST changes: -MAGN400T3 PO; +MAGN400T33 PO
--- NOTE | 2020-12-19 11:17 | REP ---
INDICATION: R05.9 COUGH COMPARISON: 11/29/2020 TECHNIQUE: PA and lateral. FINDINGS: The mediastinum and cardiac silhouette are normal. The lung rossi are clear and without acute consolidation, effusion, or pneumothorax. The skeletal structures are intact and normal. IMPRESSION: No acute cardiopulmonary process. <Electronically signed by Dougie Corado > 12/19/20 1115
== END ==
LOC: M CLY 10:54
PROVIDERS: ATTEND Physician Assistant
DX: R05.9 Cough, unspecified (principal)
CPT/HCPCS: 71046; 87426; G0463; U0003

== ENCOUNTER → 2020-12-19 | Outpatient (REF) | payer OTHER, MEDICAID | LOC: M SFHCCLAY 11:01 | PROVIDERS: ATTEND Physician Assistant | DX: R05.9 Cough, unspecified (principal) ==

== ENCOUNTER → 2021-01-01 | Outpatient (REF) | payer OTHER, MEDICAID | LOC: M SFHCCLAY 13:04 | PROVIDERS: ATTEND Family Medicine | DX: Z53.9 Procedure and treatment not carried out, unspecified reason (principal) ==

== ENCOUNTER → 2021-06-29 | Outpatient (REF) | payer OTHER, MEDICAID ==
[~2021-06-29] MED LIST changes: +FLUO-96 PO; -FLUO20CA20 PO; -LEVO250T12 PO; +LEVO250T3 PO; +TIZA10TA PO; -TIZA4TAB4 PO
[2021-06-30 11:52] LABS: ALBUMIN 3.7 GM/DL (3.2-5.2); ALT/SGPT 25 U/L (12-78); BILIRUBIN,TOTAL 0.4 MG/DL (0.2-1.0); BLOOD UREA NITROGEN 12 MG/DL (7-18); CALCIUM LEVEL 9.7 MG/DL (8.8-10.2); CARBON DIOXIDE LEVEL 31 MEQ/L (21-32); CHLORIDE LEVEL 106 MEQ/L (98-107); CHOLESTEROL LEVEL 162 MG/DL (<200); CHOLESTEROL RISK RATIO 2.655 (<5); CREATININE FOR GFR 0.61 MG/DL (0.55-1.30); GLOMERULAR FILTRATION RATE > 60.0 (>39); GLUCOSE, FASTING 140 MG/DL (70-100); HDL CHOLESTEROL 61 MG/DL (>40); LDL CHOLESTEROL 86 MG/DL (<100); NON-HDL-C 101 MG/DL; POTASSIUM SERUM 4.5 MEQ/L (3.5-5.1); RHEUMATOID FACTOR QUANT < 10.0 IU/ML (<15.0); SODIUM LEVEL 141 MEQ/L (136-145); TOTAL PROTEIN 6.9 GM/DL (6.4-8.2); TRIGLYCERIDES LEVEL 76 MG/DL (<150)
[2021-06-30 11:58] LABS: BASO # 0.1 10^3/uL (0.0-0.2); BASO % 1.1 % (0.0-1.0); EOS # 0.2 10^3/uL (0.0-0.5); EOS % 1.9 % (0.0-3.0); HEMOGLOBIN 13.9 g/dl (12.0-15.5); LYMPH # 3.1 10^3/uL (1.5-5.0); LYMPH % 32.8 % (24.0-44.0); MEAN CORPUSCULAR HEMOGLOBIN 31.3 pg (27.0-33.0); MEAN CORPUSCULAR HGB CONC 33.1 g/dl (32.0-36.5); MEAN CORPUSCULAR VOLUME 94.6 fl (80.0-96.0); MONO # 0.7 10^3/uL (0.0-0.8); MONO % 7.2 % (2.0-8.0); NEUTROPHILS # 5.3 10^3/uL (1.5-8.5); NEUTROPHILS % 56.8 % (36.0-66.0); PLATELET COUNT, AUTOMATED 297 10^3/uL (150-450); RED BLOOD COUNT 4.44 10^6/uL (4.00-5.40); WHITE BLOOD COUNT 9.3 10^3/uL (4.0-10.0)
[2021-06-30 12:19] LABS: HEMOGLOBIN A1c 10.6 %
[2021-06-30 12:24] LABS: ERYTHROCYTE SEDIMENTATION RATE 8 mm/hr (0-30)
[2021-07-01 23:08] LABS: ANA (HEP2) Positive (.); CYCLIC CITRULLINATED PEPTIDE 17 units (0-19)
== END ==
LOC: M SFHCCLAY 14:06
PROVIDERS: ATTEND Physician Assistant
DX: R52 Pain, unspecified (principal); R53.83 Other fatigue; E78.00 Pure hypercholesterolemia, unspecified; Z79.899 Other long term (current) drug therapy

== ENCOUNTER → 2021-11-19 | Outpatient (CLI) | payer OTHER, MEDICAID ==
[~2021-11-19] MED LIST changes: +LEVO1TAB38 PO; -LEVO250T3 PO; +SIMV-253 PO; -ZOCO20TA PO
[2021-11-19 14:01] LABS: HEMOGLOBIN A1c 10.2 %
[2021-11-19 14:18] LABS: ALBUMIN 3.5 GM/DL (3.2-5.2); ALT/SGPT 20 U/L (12-78); BILIRUBIN,TOTAL 0.5 MG/DL (0.2-1.0); BLOOD UREA NITROGEN 17 MG/DL (7-18); CALCIUM LEVEL 9.5 MG/DL (8.8-10.2); CARBON DIOXIDE LEVEL 32 MEQ/L (21-32); CHLORIDE LEVEL 101 MEQ/L (98-107); CHOLESTEROL LEVEL 163 MG/DL (<200); CHOLESTEROL RISK RATIO 2.432 (<5); CREATININE FOR GFR 0.65 MG/DL (0.55-1.30); GLOMERULAR FILTRATION RATE > 60.0 (>39); GLUCOSE, FASTING 243 MG/DL (70-100); HDL CHOLESTEROL 67 MG/DL (>40); LDL CHOLESTEROL 85 MG/DL (<100); NON-HDL-C 96 MG/DL; POTASSIUM SERUM 4.7 MEQ/L (3.5-5.1); SODIUM LEVEL 134 MEQ/L (136-145); TOTAL PROTEIN 6.7 GM/DL (6.4-8.2); TRIGLYCERIDES LEVEL 57 MG/DL (<150)
[2021-11-19 14:19] LABS: CREATININE, URINE 63.4 MG/DL; MALB URINE SIEMENS 15.6 MG/L; MAU/CREAT RATIO 24.6 MCG/MG (0.0-30.0)
== END ==
LOC: M LAB 11:52
PROVIDERS: ATTEND Family Medicine
DX: Z79.4 Long term (current) use of insulin (principal)

== ENCOUNTER → 2022-01-27 | Outpatient (CLI) | payer OTHER, MEDICAID | LOC: M RAD 13:12 | PROVIDERS: ATTEND Family Medicine | DX: Z12.2 Encounter for screening for malignant neoplasm of respiratory organs (principal); F17.210 Nicotine dependence, cigarettes, uncomplicated; R91.8 Other nonspecific abnormal finding of lung field ==

== ENCOUNTER → 2022-04-28 | Outpatient (REF) | payer OTHER, MEDICAID ==
[2022-04-29 13:03] LABS: BLOOD UREA NITROGEN 13 MG/DL (9-23); CALCIUM LEVEL 9.3 MG/DL (8.3-10.6); CARBON DIOXIDE LEVEL 31 MMOL/L (20-31); CHLORIDE LEVEL 104 MMOL/L (98-107); CREATININE FOR GFR 0.59 MG/DL (0.55-1.30); GLOMERULAR FILTRATION RATE > 60.0 (>39); GLUCOSE, FASTING 210 MG/DL (74-106); SODIUM LEVEL 140 MMOL/L (136-145)
[2022-04-29 13:36] LABS: HEMOGLOBIN A1c 10.1 % (4.0-6.0)
== END ==
LOC: M SFHCCLAY 15:58
PROVIDERS: ATTEND Family Medicine
DX: E10.3593 Type 1 diabetes mellitus with proliferative diabetic retinopathy without macular edema, bilateral (principal)

== ENCOUNTER 2022-07-16 03:38 | Emergency (ER) | payer OTHER, MEDICAID ==
[~2022-07-16] VITALS: Ht 162.6 cm; Wt 55.0 kg
[2022-07-16] MEDS ORDERED: NOVOINJ SC (03:50)
[2022-07-16] MEDS ORDERED: LANTINJ4 SC ×2 (03:50→05:31)
[2022-07-16 04:43] LABS: VENOUS BASE EXCESS 1.6 (-2.0-2.0); VENOUS HCO3 27.9 MMOL/L (23.0-27.0); VENOUS PARTIAL PRESSURE CO2 50.5 mmHg (38.0-50.0); VENOUS PARTIAL PRESSURE O2 39.8 mmHg (30.0-50.0); VENOUS STANDARD HCO3 25.4 MMOL/L; VENOUS TOTAL CO2 29.4 MMOL/L (24.0-28.0)
[2022-07-16 04:47] LABS: BASO # 0.1 10^3/uL (0.0-0.2); BASO % 1.3 % (0.0-1.0); EOS # 0.2 10^3/uL (0.0-0.5); EOS % 2.6 % (0.0-3.0); HEMOGLOBIN 12.2 g/dl (12.0-15.5); LYMPH # 2.8 10^3/uL (1.5-5.0); LYMPH % 32.1 % (24.0-44.0); MEAN CORPUSCULAR HEMOGLOBIN 29.4 pg (27.0-33.0); MEAN CORPUSCULAR HGB CONC 32.1 g/dl (32.0-36.5); MEAN CORPUSCULAR VOLUME 91.6 fl (80.0-96.0); MONO # 0.7 10^3/uL (0.0-0.8); MONO % 7.5 % (2.0-8.0); NEUTROPHILS # 4.9 10^3/uL (1.5-8.5); NEUTROPHILS % 56.4 % (36.0-66.0); PLATELET COUNT, AUTOMATED 272 10^3/uL (150-450); RED BLOOD COUNT 4.15 10^6/uL (4.00-5.40); WHITE BLOOD COUNT 8.6 10^3/uL (4.0-10.0)
[2022-07-16 04:59] LABS: HEMOGLOBIN A1c 10.8 % (4.0-6.0)
[2022-07-16] MEDS ORDERED: LEVEMIR (INSULIN DETEMIR) 1 UNITS/0.01ML SC ONE (05:00)
[2022-07-16 05:14] LABS: LIPASE 37 U/L (12-53)
[2022-07-16 05:16] LABS: ALBUMIN 3.5 G/DL (3.2-5.2); ALKALINE PHOSPHATASE 90 U/L (46-116); ALT/SGPT 16 U/L (7.0-40); AST/SGOT 18 U/L (<34); BILIRUBIN,DIRECT 0.1 MG/DL (<0.4); BILIRUBIN,TOTAL 0.3 MG/DL (0.3-1.2); BLOOD UREA NITROGEN 13 MG/DL (9-23); CALCIUM LEVEL 8.9 MG/DL (8.3-10.6); CARBON DIOXIDE LEVEL 29 MMOL/L (20-31); CHLORIDE LEVEL 102 MMOL/L (98-107); CREATININE FOR GFR 0.56 MG/DL (0.55-1.30); GLOMERULAR FILTRATION RATE > 60.0 (>39); GLUCOSE, FASTING 343 MG/DL (74-106); POTASSIUM SERUM 4.4 MMOL/L (3.5-5.1); SODIUM LEVEL 135 MMOL/L (136-145); TOTAL PROTEIN 6.3 G/DL (5.7-8.2)
[2022-07-16] MEDS ORDERED: NS 1,000 ML IV ONE (05:20)
[2022-07-16 05:25] LABS: OSMOLALITY SERUM 295 MOSM/KG (280-301)
[2022-07-16 05:45] VITALS: BP 168/86
== END 2022-07-16 06:08 | disposition home or self-care (01) ==
LOC: M ED 03:38
DX: E10.65 Type 1 diabetes mellitus with hyperglycemia (principal); R00.1 Bradycardia, unspecified; I10 Essential (primary) hypertension; Z79.4 Long term (current) use of insulin; Z79.811 Long term (current) use of aromatase inhibitors; Z79.899 Other long term (current) drug therapy; Z79.82 Long term (current) use of aspirin; Z88.0 Allergy status to penicillin; Z88.2 Allergy status to sulfonamides; Z88.5 Allergy status to narcotic agent
CPT/HCPCS: 80048; 80076; 82010; 82803; 83036; 83690; 83930; 85025; 93005; 93041; 94760; 96360; 96372; 99284; J1815

== ENCOUNTER 2022-08-26 19:13 | Emergency (ER) | payer OTHER, MEDICAID ==
[~2022-08-26] VITALS: Ht 162.6 cm; Wt 52.3 kg
[~2022-08-26 19:13] MED LIST changes: +LANTINJ4 SC; +NOVOINJ SC
[2022-08-26 19:16] VITALS: TEMP 96.8
[2022-08-26] MEDS ORDERED: AZO-95TA3 PO (19:26)
[2022-08-26] MEDS ORDERED: NS 1,000 ML IV ONE (21:20)
[2022-08-26 21:35] LABS: VENOUS BASE EXCESS 4.3 (-2.0-2.0); VENOUS HCO3 31.3 MMOL/L (23.0-27.0); VENOUS O2 SATURATION 51.5 % (60.0-80.0); VENOUS PARTIAL PRESSURE O2 26.9 mmHg (30.0-50.0); VENOUS PH 7.358 UNITS (7.330-7.430); VENOUS STANDARD HCO3 27.1 MMOL/L; VENOUS TOTAL CO2 33.1 MMOL/L (24.0-28.0)
[2022-08-26 21:42] LABS: BASO # 0.1 10^3/uL (0.0-0.2); EOS # 0.2 10^3/uL (0.0-0.5); EOS % 2.1 % (0.0-3.0); HEMATOCRIT 41.1 % (36.0-47.0); HEMOGLOBIN 13.4 g/dl (12.0-15.5); LYMPH # 2.7 10^3/uL (1.5-5.0); LYMPH % 30.3 % (24.0-44.0); MEAN CORPUSCULAR HEMOGLOBIN 29.3 pg (27.0-33.0); MEAN CORPUSCULAR HGB CONC 32.6 g/dl (32.0-36.5); MEAN CORPUSCULAR VOLUME 89.9 fl (80.0-96.0); MONO # 0.6 10^3/uL (0.0-0.8); MONO % 6.8 % (2.0-8.0); NEUTROPHILS # 5.3 10^3/uL (1.5-8.5); NEUTROPHILS % 59.6 % (36.0-66.0); PLATELET COUNT, AUTOMATED 300 10^3/uL (150-450); RED BLOOD COUNT 4.57 10^6/uL (4.00-5.40); WHITE BLOOD COUNT 8.9 10^3/uL (4.0-10.0)
[2022-08-26 22:07] LABS: ACETONE/KETONE 0.14 MMOL/L (0.02-0.27)
[2022-08-26 22:08] LABS: BLOOD UREA NITROGEN 12 MG/DL (9-23); CALCIUM LEVEL 9.4 MG/DL (8.3-10.6); CARBON DIOXIDE LEVEL 30 MMOL/L (20-31); CHLORIDE LEVEL 100 MMOL/L (98-107); CREATININE FOR GFR 0.53 MG/DL (0.55-1.30); GLOMERULAR FILTRATION RATE > 60.0 (>39); GLUCOSE, FASTING 260 MG/DL (74-106); POTASSIUM SERUM 4.1 MMOL/L (3.5-5.1); SODIUM LEVEL 137 MMOL/L (136-145)
[2022-08-26 22:45] VITALS: BP 152/69
[2022-08-26 22:46] VITALS: O2SAT 96
== END 2022-08-26 22:52 | disposition home or self-care (01) ==
LOC: M ED 19:13
DX: E11.65 Type 2 diabetes mellitus with hyperglycemia (principal); R81 Glycosuria; I10 Essential (primary) hypertension; E78.5 Hyperlipidemia, unspecified; F17.200 Nicotine dependence, unspecified, uncomplicated; Z86.79 Personal history of other diseases of the circulatory system; Z88.0 Allergy status to penicillin; Z88.2 Allergy status to sulfonamides; Z88.6 Allergy status to analgesic agent; Z79.82 Long term (current) use of aspirin; Z79.02 Long term (current) use of antithrombotics/antiplatelets; Z79.811 Long term (current) use of aromatase inhibitors; Z79.899 Other long term (current) drug therapy

== ENCOUNTER 2022-12-20 12:39 | Inpatient (IN) | payer OTHER, MEDICAID ==
[~2022-12-20] VITALS: Ht 162.6 cm; Wt 52.0 kg
[~2022-12-20 12:39] MED LIST changes: +AZO-95TA3 PO
[2022-12-20] MEDS ORDERED: ISOVUE-370 76% 100ML VIAL As Ordered ONE (13:04)
[2022-12-20 13:23] VITALS: BP 179/74; O2SAT 94
[2022-12-20 13:25] LABS: BASO # 0.1 10^3/uL (0.0-0.2); EOS # 0.2 10^3/uL (0.0-0.5); EOS % 2.2 % (0.0-3.0); HEMATOCRIT 35.5 % (36.0-47.0); HEMOGLOBIN 11.6 g/dl (12.0-15.5); LYMPH # 1.9 10^3/uL (1.5-5.0); LYMPH % 26.1 % (24.0-44.0); MEAN CORPUSCULAR HEMOGLOBIN 29.6 pg (27.0-33.0); MEAN CORPUSCULAR HGB CONC 32.7 g/dl (32.0-36.5); MEAN CORPUSCULAR VOLUME 90.6 fl (80.0-96.0); MONO # 0.7 10^3/uL (0.0-0.8); MONO % 9.3 % (2.0-8.0); NEUTROPHILS # 4.4 10^3/uL (1.5-8.5); NEUTROPHILS % 61.3 % (36.0-66.0); PLATELET COUNT, AUTOMATED 280 10^3/uL (150-450); RED BLOOD COUNT 3.92 10^6/uL (4.00-5.40); WHITE BLOOD COUNT 7.2 10^3/uL (4.0-10.0)
[2022-12-20 13:37] VITALS: BP 164/70
[2022-12-20 13:37] LABS: INR 1.01
[2022-12-20 13:38] LABS: PARTIAL THROMBOPLASTIN TIME 33.4 SECONDS (24.8-34.2)
[2022-12-20 13:47] VITALS: BP 162/72; O2SAT 95
[2022-12-20 13:52] LABS: CK-MB VALUE MASS 1.1 NG/ML (<3.6)
[2022-12-20 13:55] LABS: CPK CREATINE PHOSPHOKINASE 93 U/L (34-145); FREE T4 0.95 NG/DL (0.89-1.76); MB/CK RELATIVE INDEX 1.18 (< OR =4)
[2022-12-20 13:56] LABS: THYROID STIMULATING HORMONE 2.589 uIU/ML (0.55-4.78)
[2022-12-20 14:03] VITALS: BP 159/74; O2SAT 96
[2022-12-20 14:16] LABS: BLOOD UREA NITROGEN 14 MG/DL (9-23); CALCIUM LEVEL 9.1 MG/DL (8.3-10.6); CARBON DIOXIDE LEVEL 30 MMOL/L (20-31); CHLORIDE LEVEL 106 MMOL/L (98-107); CREATININE FOR GFR 0.53 MG/DL (0.55-1.30); GLOMERULAR FILTRATION RATE > 60.0 (>39); GLUCOSE, FASTING 158 MG/DL (74-106); MAGNESIUM LEVEL 1.7 MG/DL (1.8-2.4); PHOSPHORUS LEVEL 3.9 MG/DL (2.4-5.1); POTASSIUM SERUM 4.4 MMOL/L (3.5-5.1); SODIUM LEVEL 139 MMOL/L (136-145)
[2022-12-20] MEDS ORDERED: MAGNESIUM OXIDE 400MG TAB (MAG-OX) PO ONE (14:45)
[2022-12-20] MEDS ORDERED: MED REC IN PROGRESS XX SCH (14:50)
[2022-12-20] MEDS ORDERED: SULF1SUS4 PO (14:58)
[2022-12-20] MEDS ORDERED: NICOTINE 14 MG/24 HR TRANSDERMAL TD ONE (15:00)
[2022-12-20] MEDS ORDERED: CLOPIDOGREL 75 MG TAB PO ONE (15:00)
[2022-12-20] MEDS ORDERED: LANTINJ4 SC (15:08)
[2022-12-20] MEDS ORDERED: HOME MED LIST COMPLETE! XX SCH (15:10)
[2022-12-20] MEDS ORDERED: GLUCOSE 4GM CHEW TABLET PO PRN (15:35)
[2022-12-20] MEDS ORDERED: DEXTROSE 50% 50ML SYRINGE IV PRN (15:35)
[2022-12-20] MEDS ORDERED: GLUCAGON INJ 1MG VIAL SC PRN (15:35)
[2022-12-20 15:47] LABS: RSV AMPLIFICATION NEGATIVE (NEGATIVE)
[2022-12-20] MEDS ORDERED: MAG SULF 1GM/100ML (MAG RUN) 1 GM in IV 1 EA IV ONE (16:00)
[2022-12-20 16:30] VITALS: BP 148/62; TEMP 98.6; O2SAT 96
[2022-12-20] MEDS: **hydrALAZINE HCL** 25 MG TAB PO SCH ×2 (18:00→23:03)
[2022-12-20] MEDS: INSULIN LISPRO (NovoLOG) PER UNIT SC SCH (18:25)
[2022-12-20] MEDS: FLUoxetine 20MG CAP PO SCH (19:45)
[2022-12-20] MEDS: LEVOTHYROXINE 25MCG TABLET (0.025MG) PO SCH (19:45)
[2022-12-20] MEDS: ENOXAPARIN 40MG/0.4ML SYRINGE (J1650 PER 10MG) SC SCH (19:45)
[2022-12-20 20:50] VITALS: BP 138/60; TEMP 98.1; O2SAT 95
[2022-12-21 05:17] VITALS: BP 164/60; TEMP 98.2; O2SAT 95
[2022-12-21] MEDS: **hydrALAZINE HCL** 25 MG TAB PO SCH ×4 (05:20→23:07)
[2022-12-21 05:57] LABS: BASO # 0.1 10^3/uL (0.0-0.2); BASO % 1.3 % (0.0-1.0); EOS # 0.3 10^3/uL (0.0-0.5); EOS % 4.2 % (0.0-3.0); HEMATOCRIT 34.5 % (36.0-47.0); HEMOGLOBIN 11.2 g/dl (12.0-15.5); LYMPH # 2.4 10^3/uL (1.5-5.0); LYMPH % 36.4 % (24.0-44.0); MEAN CORPUSCULAR HEMOGLOBIN 29.2 pg (27.0-33.0); MEAN CORPUSCULAR HGB CONC 32.5 g/dl (32.0-36.5); MEAN CORPUSCULAR VOLUME 90.1 fl (80.0-96.0); MONO # 0.6 10^3/uL (0.0-0.8); MONO % 8.7 % (2.0-8.0); NEUTROPHILS # 3.3 10^3/uL (1.5-8.5); NEUTROPHILS % 49.1 % (36.0-66.0); PLATELET COUNT, AUTOMATED 262 10^3/uL (150-450); RED BLOOD COUNT 3.83 10^6/uL (4.00-5.40); WHITE BLOOD COUNT 6.7 10^3/uL (4.0-10.0)
[2022-12-21 06:30] LABS: BLOOD UREA NITROGEN 9 MG/DL (9-23); CALCIUM LEVEL 8.5 MG/DL (8.3-10.6); CARBON DIOXIDE LEVEL 30 MMOL/L (20-31); CHLORIDE LEVEL 104 MMOL/L (98-107); GLOMERULAR FILTRATION RATE > 60.0 (>39); GLUCOSE, FASTING 159 MG/DL (74-106); POTASSIUM SERUM 3.9 MMOL/L (3.5-5.1); SODIUM LEVEL 138 MMOL/L (136-145)
[2022-12-21] MEDS ORDERED: LEVEMIR (INSULIN DETEMIR) 1 UNITS/0.01ML SC SCH (09:00)
[2022-12-21] MEDS: INSULIN LISPRO (NovoLOG) PER UNIT SC SCH ×3 (09:56→17:30)
[2022-12-21] MEDS: ATORVASTATIN 20 MG TAB PO SCH (09:56)
[2022-12-21] MEDS: CLOPIDOGREL 75 MG TAB PO SCH (09:56)
[2022-12-21] MEDS: ASPIRIN 81MG ENTERIC TABLET PO SCH (09:56)
[2022-12-21 12:15] LABS: HEMOGLOBIN A1c 9.6 % (4.0-6.0)
[2022-12-21 14:00] VITALS: BP 140/64; TEMP 97.9; O2SAT 93
[2022-12-21] MEDS ORDERED: PREVNAR-20 VACCINE 0.5ML SYRINGE IM.IMMUN ONE (14:00)
[2022-12-21] MEDS: ENOXAPARIN 40MG/0.4ML SYRINGE (J1650 PER 10MG) SC SCH (19:36)
[2022-12-21] MEDS: FLUoxetine 20MG CAP PO SCH (19:36)
[2022-12-21] MEDS: LEVOTHYROXINE 25MCG TABLET (0.025MG) PO SCH (19:36)
[2022-12-21 20:00] VITALS: BP 138/62; TEMP 96.6; O2SAT 94
[2022-12-22 05:35] VITALS: BP 138/58; TEMP 97.7; O2SAT 95
[2022-12-22] MEDS: **hydrALAZINE HCL** 25 MG TAB PO SCH ×2 (05:37→11:59)
[2022-12-22 06:05] LABS: BASO # 0.1 10^3/uL (0.0-0.2); BASO % 1.2 % (0.0-1.0); EOS # 0.2 10^3/uL (0.0-0.5); EOS % 2.8 % (0.0-3.0); HEMATOCRIT 34.5 % (36.0-47.0); HEMOGLOBIN 11.3 g/dl (12.0-15.5); LYMPH # 2.1 10^3/uL (1.5-5.0); LYMPH % 31.8 % (24.0-44.0); MEAN CORPUSCULAR HEMOGLOBIN 29.8 pg (27.0-33.0); MEAN CORPUSCULAR HGB CONC 32.8 g/dl (32.0-36.5); MONO # 0.6 10^3/uL (0.0-0.8); MONO % 8.9 % (2.0-8.0); NEUTROPHILS # 3.7 10^3/uL (1.5-8.5); PLATELET COUNT, AUTOMATED 257 10^3/uL (150-450); RED BLOOD COUNT 3.79 10^6/uL (4.00-5.40); WHITE BLOOD COUNT 6.7 10^3/uL (4.0-10.0)
[2022-12-22 06:30] LABS: BLOOD UREA NITROGEN 13 MG/DL (9-23); CALCIUM LEVEL 8.8 MG/DL (8.3-10.6); CARBON DIOXIDE LEVEL 32 MMOL/L (20-31); CHLORIDE LEVEL 107 MMOL/L (98-107); CREATININE FOR GFR 0.59 MG/DL (0.55-1.30); GLOMERULAR FILTRATION RATE > 60.0 (>39); GLUCOSE, FASTING 137 MG/DL (74-106); POTASSIUM SERUM 4.2 MMOL/L (3.5-5.1); SODIUM LEVEL 142 MMOL/L (136-145)
[2022-12-22] MEDS: ASPIRIN 81MG ENTERIC TABLET PO SCH (08:38)
[2022-12-22] MEDS: ATORVASTATIN 20 MG TAB PO SCH (08:38)
[2022-12-22] MEDS: CLOPIDOGREL 75 MG TAB PO SCH (08:38)
[2022-12-22] MEDS: INSULIN LISPRO (NovoLOG) PER UNIT SC SCH ×2 (08:39→12:00)
[2022-12-22] MEDS ORDERED: LEVEMIR (INSULIN DETEMIR) 1 UNITS/0.01ML SC SCH (09:00)
[2022-12-22] MEDS ORDERED: PREVNAR-20 VACCINE 0.5ML SYRINGE IM.IMMUN ONE (09:00)
[2022-12-22 11:59] VITALS: BP 140/66
[2022-12-22 14:00] VITALS: BP 136/64; TEMP 98.8; O2SAT 92
[2022-12-22] MEDS ORDERED: CLOP75TA2 PO (15:25)
[2022-12-22] MEDS ORDERED: INSULIN LISPRO (NovoLOG) PER UNIT SC SCH (17:30)
[2022-12-23] MEDS ORDERED: LEVO1TAB40 PO (12:45)
== END 2022-12-22 18:51 | disposition home or self-care (01) | DRG 65 ==
LOC: M ED 12:39 → EEVIPCON 14:59 → M ED INP 14:59 → ENRESERV 16:07 → M MSPAV 16:30
PROVIDERS: ADMIT Internal Medicine Nephrology; ATTEND Internal Medicine Nephrology
DX: I63.9 Cerebral infarction, unspecified (principal); N39.0 Urinary tract infection, site not specified; J44.9 Chronic obstructive pulmonary disease, unspecified; I10 Essential (primary) hypertension; E03.9 Hypothyroidism, unspecified; E78.5 Hyperlipidemia, unspecified; E83.42 Hypomagnesemia; B96.20 Unspecified Escherichia coli [E. coli] as the cause of diseases classified elsewhere; E11.9 Type 2 diabetes mellitus without complications; Z85.41 Personal history of malignant neoplasm of cervix uteri; Z88.0 Allergy status to penicillin; Z88.2 Allergy status to sulfonamides; Z88.8 Allergy status to other drugs, medicaments and biological substances; Z79.82 Long term (current) use of aspirin; Z79.899 Other long term (current) drug therapy; K21.9 Gastro-esophageal reflux disease without esophagitis; Z85.828 Personal history of other malignant neoplasm of skin; F17.200 Nicotine dependence, unspecified, uncomplicated

== ENCOUNTER 2022-12-26 19:05 | Inpatient (IN) | payer OTHER, MEDICAID ==
[~2022-12-26] VITALS: Ht 162.6 cm; Wt 56.3 kg
[~2022-12-26 19:05] MED LIST changes: +LEVO1TAB40 PO; +SULF1SUS4 PO
[2022-12-26] MEDS ORDERED: ISOVUE-370 76% 100ML VIAL As Ordered ONE (19:29)
[2022-12-26 19:55] LABS: BASO # 0.1 10^3/uL (0.0-0.2); EOS # 0.2 10^3/uL (0.0-0.5); HEMATOCRIT 36.4 % (36.0-47.0); HEMOGLOBIN 11.9 g/dl (12.0-15.5); LYMPH # 3.5 10^3/uL (1.5-5.0); LYMPH % 35.5 % (24.0-44.0); MEAN CORPUSCULAR HGB CONC 32.7 g/dl (32.0-36.5); MEAN CORPUSCULAR VOLUME 88.6 fl (80.0-96.0); MONO # 0.7 10^3/uL (0.0-0.8); MONO % 7.2 % (2.0-8.0); NEUTROPHILS # 5.3 10^3/uL (1.5-8.5); NEUTROPHILS % 54.1 % (36.0-66.0); PLATELET COUNT, AUTOMATED 300 10^3/uL (150-450); RED BLOOD COUNT 4.11 10^6/uL (4.00-5.40); WHITE BLOOD COUNT 9.8 10^3/uL (4.0-10.0)
[2022-12-26 20:28] LABS: RSV AMPLIFICATION NEGATIVE (NEGATIVE)
[2022-12-26 20:34] LABS: BLOOD UREA NITROGEN 14 MG/DL (9-23); CALCIUM LEVEL 8.9 MG/DL (8.3-10.6); CARBON DIOXIDE LEVEL 30 MMOL/L (20-31); CHLORIDE LEVEL 105 MMOL/L (98-107); CK-MB VALUE MASS < 1.0 NG/ML (<3.6); CPK CREATINE PHOSPHOKINASE 98 U/L (34-145); CREATININE FOR GFR 0.52 MG/DL (0.55-1.30); GLOMERULAR FILTRATION RATE > 60.0 (>39); GLUCOSE, FASTING 75 MG/DL (74-106); MB/CK RELATIVE INDEX 1.02 (< OR =4); POTASSIUM SERUM 4.8 MMOL/L (3.5-5.1); SODIUM LEVEL 140 MMOL/L (136-145)
[2022-12-26] MEDS ORDERED: ACETAMINOPHEN TAB 650MG DOSE (2X325MG) PO PRN (21:00)
[2022-12-26] MEDS ORDERED: LEVO1TAB40 PO (21:11)
[2022-12-26] MEDS ORDERED: CLOP75TA99 PO (21:11)
[2022-12-26] MEDS ORDERED: HOME MED LIST COMPLETE! XX SCH (21:15)
[2022-12-26 21:18] LABS: MAGNESIUM LEVEL 1.8 MG/DL (1.8-2.4)
[2022-12-26 21:29] LABS: INR 0.99; PROTHROMBIN TIME 12.8 SECONDS (12.5-14.5)
[2022-12-26 21:30] LABS: PARTIAL THROMBOPLASTIN TIME 33.4 SECONDS (24.8-34.2)
[2022-12-26] MEDS ORDERED: GLUCAGON INJ 1MG VIAL SC PRN (22:25)
[2022-12-26] MEDS ORDERED: DEXTROSE 50% 50ML SYRINGE IV PRN (22:25)
[2022-12-26] MEDS ORDERED: GLUCOSE 4GM CHEW TABLET PO PRN (22:25)
[2022-12-27 03:11] VITALS: BP_SYST 140; BP_SYST 150; BP_DIAS 70; TEMP 97.6; O2SAT 100
[2022-12-27 06:07] LABS: HEMATOCRIT 35.8 % (36.0-47.0); HEMOGLOBIN 11.6 g/dl (12.0-15.5); MEAN CORPUSCULAR HGB CONC 32.4 g/dl (32.0-36.5); MEAN CORPUSCULAR VOLUME 89.5 fl (80.0-96.0); PLATELET COUNT, AUTOMATED 256 10^3/uL (150-450); WHITE BLOOD COUNT 6.9 10^3/uL (4.0-10.0)
[2022-12-27 06:26] VITALS: BP 160/72; TEMP 97.1; O2SAT 99
[2022-12-27 06:31] LABS: BLOOD UREA NITROGEN 11 MG/DL (9-23); CALCIUM LEVEL 8.6 MG/DL (8.3-10.6); CARBON DIOXIDE LEVEL 29 MMOL/L (20-31); CHLORIDE LEVEL 106 MMOL/L (98-107); CREATININE FOR GFR 0.48 MG/DL (0.55-1.30); GLOMERULAR FILTRATION RATE > 60.0 (>39); GLUCOSE, FASTING 49 MG/DL (74-106); MAGNESIUM LEVEL 1.8 MG/DL (1.8-2.4); POTASSIUM SERUM 3.6 MMOL/L (3.5-5.1); SODIUM LEVEL 143 MMOL/L (136-145)
[2022-12-27] MEDS ORDERED: INSULIN LISPRO (NovoLOG) PER UNIT SC SCH ×2 (07:30→21:00)
[2022-12-27] MEDS ORDERED: LEVEMIR (INSULIN DETEMIR) 1 UNITS/0.01ML SC SCH (09:00)
[2022-12-27] MEDS: ASPIRIN 81MG ENTERIC TABLET PO SCH (10:35)
[2022-12-27] MEDS: INSULIN LISPRO (NovoLOG) PER UNIT SC SCH ×3 (12:19→17:53)
[2022-12-27 12:53] LABS: CHOLESTEROL RISK RATIO 2.87 (<5); HDL CHOLESTEROL 54.2 MG/DL (>40); LDL CHOLESTEROL 76.2 MG/DL (<100); NON-HDL-C 101.8 MG/DL
[2022-12-27 14:00] VITALS: BP 164/77; TEMP 99.3; O2SAT 94
[2022-12-27 18:40] LABS: BASO # 0.1 10^3/uL (0.0-0.2); BASO % 1.2 % (0.0-1.0); EOS # 0.2 10^3/uL (0.0-0.5); EOS % 2.5 % (0.0-3.0); HEMATOCRIT 35.8 % (36.0-47.0); HEMOGLOBIN 11.7 g/dl (12.0-15.5); LYMPH # 1.7 10^3/uL (1.5-5.0); LYMPH % 25.9 % (24.0-44.0); MEAN CORPUSCULAR HEMOGLOBIN 29.3 pg (27.0-33.0); MEAN CORPUSCULAR HGB CONC 32.7 g/dl (32.0-36.5); MEAN CORPUSCULAR VOLUME 89.7 fl (80.0-96.0); MONO # 0.4 10^3/uL (0.0-0.8); MONO % 6.4 % (2.0-8.0); NEUTROPHILS # 4.3 10^3/uL (1.5-8.5); NEUTROPHILS % 63.9 % (36.0-66.0); PLATELET COUNT, AUTOMATED 246 10^3/uL (150-450); RED BLOOD COUNT 3.99 10^6/uL (4.00-5.40); WHITE BLOOD COUNT 6.7 10^3/uL (4.0-10.0)
[2022-12-27 19:05] LABS: BLOOD UREA NITROGEN 13 MG/DL (9-23); CALCIUM LEVEL 8.5 MG/DL (8.3-10.6); CARBON DIOXIDE LEVEL 29 MMOL/L (20-31); CHLORIDE LEVEL 104 MMOL/L (98-107); CREATININE FOR GFR 0.45 MG/DL (0.55-1.30); GLOMERULAR FILTRATION RATE > 60.0 (>39); GLUCOSE, FASTING 359 MG/DL (74-106); POTASSIUM SERUM 4.4 MMOL/L (3.5-5.1); SODIUM LEVEL 139 MMOL/L (136-145)
[2022-12-27 20:10] VITALS: BP 153/67; TEMP 98.7; O2SAT 94
[2022-12-27] MEDS ORDERED: FLUoxetine 20MG CAP PO SCH (21:00)
[2022-12-27] MEDS ORDERED: CLOPIDOGREL 75 MG TAB PO SCH (21:00)
[2022-12-27] MEDS ORDERED: LevoFLOXacin 750 MG TABLET PO SCH (21:00)
[2022-12-27] MEDS ORDERED: ATORVASTATIN 20 MG TAB PO SCH (21:00)
[2022-12-27] MEDS ORDERED: MAGNESIUM OXIDE 400MG TAB (MAG-OX) PO SCH (21:00)
[2022-12-27] MEDS ORDERED: LEVOTHYROXINE 25MCG TABLET (0.025MG) PO SCH (21:00)
[2022-12-28 05:33] VITALS: BP 166/72; TEMP 98.7; O2SAT 92
[2022-12-28 06:50] LABS: HEMOGLOBIN A1c 9.7 % (4.0-6.0)
[2022-12-28] MEDS: ASPIRIN 81MG ENTERIC TABLET PO SCH (08:24)
[2022-12-28] MEDS: INSULIN LISPRO (NovoLOG) PER UNIT SC SCH ×4 (08:24→13:20)
[2022-12-28 08:25] VITALS: BP 150/70
[2022-12-28] MEDS ORDERED: LEVEMIR (INSULIN DETEMIR) 1 UNITS/0.01ML SC SCH (09:00)
[2022-12-28] MEDS ORDERED: amLODIPine 5 MG TAB PO SCH (09:00)
[2022-12-28] MEDS ORDERED: AMLO1TAB24 PO (10:40)
[2022-12-28] MEDS ORDERED: JARD1TAB PO (10:40)
[2022-12-28 14:54] VITALS: BP 119/58; TEMP 99; O2SAT 95
== END 2022-12-28 18:03 | disposition home or self-care (01) | DRG 57 ==
LOC: EDBD 19:05 → M ED 19:05 → M ED INP 20:59 → ENRESERV 12-27 01:33 → M MS4PR 12-27 02:30
PROVIDERS: ADMIT Internal Medicine; ATTEND Internal Medicine
DX: I69.361 Other paralytic syndrome following cerebral infarction affecting right dominant side (principal); N39.0 Urinary tract infection, site not specified; K21.9 Gastro-esophageal reflux disease without esophagitis; J44.9 Chronic obstructive pulmonary disease, unspecified; E03.9 Hypothyroidism, unspecified; I10 Essential (primary) hypertension; E78.5 Hyperlipidemia, unspecified; Z85.41 Personal history of malignant neoplasm of cervix uteri; Z79.4 Long term (current) use of insulin; Z88.0 Allergy status to penicillin; Z88.2 Allergy status to sulfonamides; Z88.8 Allergy status to other drugs, medicaments and biological substances; Z88.6 Allergy status to analgesic agent; Z79.82 Long term (current) use of aspirin; Z79.899 Other long term (current) drug therapy; F41.9 Anxiety disorder, unspecified; F32.A Depression, unspecified; Z85.828 Personal history of other malignant neoplasm of skin; F17.210 Nicotine dependence, cigarettes, uncomplicated; E11.9 Type 2 diabetes mellitus without complications

== ENCOUNTER → 2023-05-24 | Outpatient (CLI) | payer OTHER, MEDICAID ==
[~2023-05-24] MED LIST changes: +AMLO1TAB24 PO; +CLOP75TA99 PO; +JARD1TAB PO
== END ==
LOC: M RAD 13:48
PROVIDERS: ATTEND Family Medicine
DX: Z12.2 Encounter for screening for malignant neoplasm of respiratory organs (principal); F17.210 Nicotine dependence, cigarettes, uncomplicated

== ENCOUNTER → 2023-07-12 | Outpatient (REF) | payer OTHER, MEDICAID | LOC: M SFHCCLAY 16:38 | PROVIDERS: ATTEND Family Medicine | DX: E10.40 Type 1 diabetes mellitus with diabetic neuropathy, unspecified (principal); J18.9 Pneumonia, unspecified organism ==

== ENCOUNTER 2023-11-28 08:30 | Day surgery (SDC) | payer OTHER, MEDICAID ==
[~2023-11-28] VITALS: Ht 162.6 cm; Wt 52.6 kg
[~2023-11-28 08:30] MED LIST changes: +LR 1,000 ML IV SCH
[2023-11-28] MEDS: ATROPINE SULFATE 1% OPHTH SOLN 2ML BTL OD SCH (08:56)
[2023-11-28] MEDS: PHENYLEPHRINE 2.5% OPHTH SOL 2ML OD SCH (08:56)
[2023-11-28] MEDS: FLURBIPROFEN 0.03% OPHTH SOLN 2.5 ML OD SCH (08:56)
[2023-11-28] MEDS: TETRACAINE 0.5% OPHTH SOLN 4ML OD SCH (08:56)
[2023-11-28] MEDS ORDERED: MIDAZOLAM INJ 2MG/2ML VIAL As Ordered ONE (10:02)
[2023-11-28] MEDS: MOXIFLOXACIN 0.6MG/0.4ML INTRAOCULAR SYRINGE As Ordered ONE (10:20)
[2023-11-28] MEDS: LIDOCAINE 1% SDV 5ML VIAL As Ordered ONE (10:20)
[2023-11-28 10:35] VITALS: BP 179/81; TEMP 96.4; O2SAT 97
== END 2023-11-28 10:53 | disposition home or self-care (01) ==
LOC: M SDC 08:30
PROVIDERS: ATTEND Ophthalmology
DX: H25.11 Age-related nuclear cataract, right eye (principal); I10 Essential (primary) hypertension; E11.9 Type 2 diabetes mellitus without complications; E03.9 Hypothyroidism, unspecified; D64.9 Anemia, unspecified; F41.9 Anxiety disorder, unspecified; F32.A Depression, unspecified; J44.9 Chronic obstructive pulmonary disease, unspecified; Z86.73 Personal history of transient ischemic attack (TIA), and cerebral infarction without residual deficits; Z79.02 Long term (current) use of antithrombotics/antiplatelets; Z88.0 Allergy status to penicillin; Z88.2 Allergy status to sulfonamides; Z88.8 Allergy status to other drugs, medicaments and biological substances; Z79.4 Long term (current) use of insulin; Z79.899 Other long term (current) drug therapy; Z79.82 Long term (current) use of aspirin; F17.218 Nicotine dependence, cigarettes, with other nicotine-induced disorders
CPT/HCPCS: 66984; J2250; V2632

== ENCOUNTER → 2023-12-01 | Outpatient (REF) | payer OTHER, MEDICAID ==
[~2023-12-01] MED LIST changes: -LR 1,000 ML IV SCH
[2023-12-02 11:49] LABS: HEMATOCRIT 34.1 % (36.0-47.0); HEMOGLOBIN 11.2 g/dl (12.0-15.5); MEAN CORPUSCULAR HEMOGLOBIN 28.6 pg (27.0-33.0); MEAN CORPUSCULAR HGB CONC 32.8 g/dl (32.0-36.5); PLATELET COUNT, AUTOMATED 330 10^3/uL (150-450); RED BLOOD COUNT 3.92 10^6/uL (4.00-5.40); WHITE BLOOD COUNT 10.1 10^3/uL (4.0-10.0)
[2023-12-02 12:18] LABS: BLOOD UREA NITROGEN 16 MG/DL (9-23); CALCIUM LEVEL 9.5 MG/DL (8.3-10.6); CARBON DIOXIDE LEVEL 31 MMOL/L (20-31); CHLORIDE LEVEL 105 MMOL/L (98-107); GLOMERULAR FILTRATION RATE > 60.0 (>39); GLUCOSE, FASTING 142 MG/DL (74-106); POTASSIUM SERUM 4.2 MMOL/L (3.5-5.1); SODIUM LEVEL 136 MMOL/L (136-145)
[2023-12-02 12:19] LABS: FREE T4 1.08 NG/DL (0.89-1.76); THYROID STIMULATING HORMONE 3.255 uIU/ML (0.55-4.78)
[2023-12-02 13:01] LABS: HEMOGLOBIN A1c 9.2 % (4.0-6.0)
== END ==
LOC: M SFHCCLAY 15:44
PROVIDERS: ATTEND Family Medicine
DX: E10.40 Type 1 diabetes mellitus with diabetic neuropathy, unspecified (principal); E03.9 Hypothyroidism, unspecified; I69.30 Unspecified sequelae of cerebral infarction; F32.9 Major depressive disorder, single episode, unspecified

== ENCOUNTER → 2024-01-12 | Outpatient (REF) | payer OTHER, MEDICAID ==
[2024-01-12 18:24] LABS: LDH LACTATE DEHYDROGENASE 124 U/L (120-246)
[2024-01-12 18:25] LABS: IRON (FE) 25 UG/DL (50-170); PERCENT SATURATION 6.4 % (13.2-45.0); TOTAL IRON BINDING CAPACITY 392 UG/DL (250-425)
[2024-01-12 18:26] LABS: FOLATE > 24.00 NG/ML (>5.4)
[2024-01-12 18:27] LABS: VITAMIN B12 LEVEL 1503 PG/ML (211-911)
== END ==
LOC: M SFHCCLAY 14:14
PROVIDERS: ATTEND Family Medicine
DX: R15.9 Full incontinence of feces (principal); D64.9 Anemia, unspecified

== ENCOUNTER 2024-02-10 12:02 | Emergency (ER) | payer OTHER, MEDICAID ==
[~2024-02-10] VITALS: Ht 162.6 cm; Wt 54.9 kg
[2024-02-10 13:52] VITALS: BP 132/57; TEMP 98.2; O2SAT 90
[2024-02-10] MEDS ORDERED: CLOP75TA2 (14:06)
[2024-02-10] MEDS ORDERED: NOVOINJ3 (14:06)
[2024-02-10] MEDS ORDERED: AMLO1TAB25 (14:06)
[2024-02-10 14:15] VITALS: BP 131/62; TEMP 98.4; O2SAT 2; O2SAT 20
[2024-02-10 15:00] VITALS: BP 131/60; TEMP 98.2; O2SAT 91
[2024-02-10 15:40] VITALS: BP 126/60; TEMP 98.5; TEMP 98.6; O2SAT 91
[2024-02-10 17:02] VITALS: BP 128/62; TEMP 98.2; O2SAT 93
== END 2024-02-10 17:15 | disposition home or self-care (01) ==
LOC: M ED 12:02
DX: R22.2 Localized swelling, mass and lump, trunk (principal); T46.4X5A Adverse effect of angiotensin-converting-enzyme inhibitors, initial encounter; E11.9 Type 2 diabetes mellitus without complications; I10 Essential (primary) hypertension; E03.9 Hypothyroidism, unspecified; Z86.79 Personal history of other diseases of the circulatory system; Z88.0 Allergy status to penicillin; Z88.2 Allergy status to sulfonamides; Z88.6 Allergy status to analgesic agent; Z88.8 Allergy status to other drugs, medicaments and biological substances; Z79.82 Long term (current) use of aspirin; Z79.02 Long term (current) use of antithrombotics/antiplatelets; Z79.4 Long term (current) use of insulin; Z79.899 Other long term (current) drug therapy

== ENCOUNTER 2024-02-14 13:33 | Emergency (ER) | payer OTHER, MEDICAID ==
[~2024-02-14] VITALS: Ht 162.6 cm; Wt 55.6 kg
[~2024-02-14 13:33] MED LIST changes: +AMLO1TAB25; +CLOP75TA2; +NOVOINJ3
[2024-02-14] MEDS ORDERED: MUPI2OI TOP (16:39)
[2024-02-14 16:51] VITALS: BP 145/67; TEMP 98; O2SAT 95
== END 2024-02-14 16:52 | disposition home or self-care (01) ==
LOC: M ED 13:33
DX: L01.00 Impetigo, unspecified (principal); R21 Rash and other nonspecific skin eruption; E03.9 Hypothyroidism, unspecified; E11.9 Type 2 diabetes mellitus without complications; I10 Essential (primary) hypertension; J44.9 Chronic obstructive pulmonary disease, unspecified; F17.200 Nicotine dependence, unspecified, uncomplicated; Z88.0 Allergy status to penicillin; Z88.2 Allergy status to sulfonamides; Z88.6 Allergy status to analgesic agent; Z88.8 Allergy status to other drugs, medicaments and biological substances; Z79.82 Long term (current) use of aspirin; Z79.02 Long term (current) use of antithrombotics/antiplatelets; Z79.4 Long term (current) use of insulin; Z79.899 Other long term (current) drug therapy; Z79.01 Long term (current) use of anticoagulants

== ENCOUNTER → 2024-04-26 | Outpatient (REF) | payer OTHER, MEDICAID ==
[~2024-04-26] MED LIST changes: +MUPI2OI TOP
[2024-04-26 18:51] LABS: BASO # 0.1 10^3/uL (0.0-0.2); EOS # 0.2 10^3/uL (0.0-0.5); EOS % 1.7 % (0.0-3.0); HEMATOCRIT 36.7 % (36.0-47.0); HEMOGLOBIN 11.7 g/dl (12.0-15.5); LYMPH # 1.8 10^3/uL (1.5-5.0); LYMPH % 19.9 % (24.0-44.0); MEAN CORPUSCULAR HEMOGLOBIN 27.5 pg (27.0-33.0); MEAN CORPUSCULAR HGB CONC 31.9 g/dl (32.0-36.5); MEAN CORPUSCULAR VOLUME 86.4 fl (80.0-96.0); MONO # 0.5 10^3/uL (0.0-0.8); MONO % 5.7 % (2.0-8.0); NEUTROPHILS # 6.5 10^3/uL (1.5-8.5); NEUTROPHILS % 71.4 % (36.0-66.0); PLATELET COUNT, AUTOMATED 310 10^3/uL (150-450); RED BLOOD COUNT 4.25 10^6/uL (4.00-5.40); WHITE BLOOD COUNT 9.1 10^3/uL (4.0-10.0)
[2024-04-26 18:57] LABS: HEMOGLOBIN A1c 9.7 % (4.0-6.0)
[2024-04-26 19:09] LABS: THYROID STIMULATING HORMONE 2.691 uIU/ML (0.55-4.78)
[2024-04-26 19:10] LABS: FERRITIN 8.7 NG/ML (7.3-270.7); FREE T4 1.08 NG/DL (0.89-1.76)
[2024-04-26 19:11] LABS: VITAMIN B12 LEVEL 1744 PG/ML (211-911)
[2024-04-26 19:13] LABS: FOLATE > 24.00 NG/ML (>5.4)
[2024-04-26 19:15] LABS: TOTAL IRON BINDING CAPACITY 378 UG/DL (250-425)
[2024-04-26 19:17] LABS: IRON (FE) 66 UG/DL (50-170); PERCENT SATURATION 17.5 % (13.2-45.0)
[2024-04-26 20:20] LABS: ALBUMIN 3.7 G/DL (3.2-5.2); ALKALINE PHOSPHATASE 111 U/L (35-104); ALT/SGPT 18 U/L (7.0-40); AST/SGOT 22 U/L (<34); BILIRUBIN,TOTAL 0.6 MG/DL (0.3-1.2); BLOOD UREA NITROGEN 17 MG/DL (9-23); CALCIUM LEVEL 9.4 MG/DL (8.3-10.6); CARBON DIOXIDE LEVEL 28 MMOL/L (20-31); CHLORIDE LEVEL 99 MMOL/L (98-107); CHOLESTEROL LEVEL 169 MG/DL (<200); CHOLESTEROL RISK RATIO 2.81 (<5); CREATININE FOR GFR 0.51 MG/DL (0.55-1.30); GLOMERULAR FILTRATION RATE > 60.0 (>39); GLUCOSE, FASTING 479 MG/DL (74-106); LDL CHOLESTEROL 84.2 MG/DL (<100); POTASSIUM SERUM 4.9 MMOL/L (3.5-5.1); SODIUM LEVEL 135 MMOL/L (136-145); TOTAL PROTEIN 7.3 G/DL (5.7-8.2); TRIGLYCERIDES LEVEL 124 MG/DL (<150)
== END ==
LOC: M SFHCCLAY 13:39
PROVIDERS: ATTEND Nurse Practitioner Family
DX: R35.0 Frequency of micturition (principal); E78.5 Hyperlipidemia, unspecified; E03.9 Hypothyroidism, unspecified; E10.40 Type 1 diabetes mellitus with diabetic neuropathy, unspecified; I10 Essential (primary) hypertension; I69.351 Hemiplegia and hemiparesis following cerebral infarction affecting right dominant side; F32.9 Major depressive disorder, single episode, unspecified; J44.0 Chronic obstructive pulmonary disease with (acute) lower respiratory infection; F17.210 Nicotine dependence, cigarettes, uncomplicated; D50.9 Iron deficiency anemia, unspecified; R41.3 Other amnesia

== ENCOUNTER → 2024-05-17 | Outpatient (CLI) | payer OTHER, MEDICAID ==
[~2024-05-17] MED LIST changes: +AMLO1TAB25 PO; +MAGN200T PO; +THERTAB52 PO; +glucocil PO; +vitamin b12 PO
== END ==
LOC: M PLAIMG 10:10
PROVIDERS: ATTEND Nurse Practitioner Family
DX: R41.3 Other amnesia (principal); I67.9 Cerebrovascular disease, unspecified; G31.9 Degenerative disease of nervous system, unspecified; J01.00 Acute maxillary sinusitis, unspecified

== ENCOUNTER → 2024-05-23 | Day surgery (SDC) | payer OTHER, MEDICAID ==
[~2024-05-23] VITALS: Ht 162.6 cm; Wt 56.2 kg
[~2024-05-23] MED LIST changes: +DEXTROSE 50% 50ML SYRINGE IV PRN; +GLUCAGON INJ 1MG VIAL SC PRN; +GLUCOSE 4 GM CHEW PO PRN; +INSULIN LISPRO (NovoLOG) PER UNIT SC PRN; +SIMETHICONE 40MG/0.6ML DROPS 30ML As Ordered ONE
[2024-05-23 07:43] VITALS: BP 182/76; TEMP 97; O2SAT 92
== END | disposition home or self-care (01) ==
LOC: M OPP 06:16
PROVIDERS: ATTEND Surgery
DX: D50.9 Iron deficiency anemia, unspecified (principal); R00.1 Bradycardia, unspecified; I49.9 Cardiac arrhythmia, unspecified; I10 Essential (primary) hypertension; E78.5 Hyperlipidemia, unspecified; E11.40 Type 2 diabetes mellitus with diabetic neuropathy, unspecified; E03.9 Hypothyroidism, unspecified; K21.9 Gastro-esophageal reflux disease without esophagitis; F03.90 Unspecified dementia, unspecified severity, without behavioral disturbance, psychotic disturbance, mood disturbance, and anxiety; F32.A Depression, unspecified; J44.9 Chronic obstructive pulmonary disease, unspecified; F17.210 Nicotine dependence, cigarettes, uncomplicated; Z85.41 Personal history of malignant neoplasm of cervix uteri; Z88.0 Allergy status to penicillin; Z88.2 Allergy status to sulfonamides; Z88.6 Allergy status to analgesic agent; Z88.8 Allergy status to other drugs, medicaments and biological substances; Z79.4 Long term (current) use of insulin; Z79.82 Long term (current) use of aspirin; Z79.890 Hormone replacement therapy; Z79.899 Other long term (current) drug therapy

== ENCOUNTER → 2024-05-24 | Outpatient (CLI) | payer OTHER, MEDICAID ==
[~2024-05-24] MED LIST changes: -DEXTROSE 50% 50ML SYRINGE IV PRN; -GLUCAGON INJ 1MG VIAL SC PRN; -GLUCOSE 4 GM CHEW PO PRN; -INSULIN LISPRO (NovoLOG) PER UNIT SC PRN; -SIMETHICONE 40MG/0.6ML DROPS 30ML As Ordered ONE
== END ==
LOC: M CLY 13:08
PROVIDERS: ATTEND Physician Assistant
DX: R05.1 Acute cough (principal)

== ENCOUNTER → 2024-05-24 | Outpatient (REF) | payer OTHER, MEDICAID ==
[2024-05-24 18:39] LABS: BASO # 0.1 10^3/uL (0.0-0.2); BASO % 1.5 % (0.0-1.0); EOS # 0.1 10^3/uL (0.0-0.5); EOS % 1.6 % (0.0-3.0); HEMATOCRIT 37.5 % (36.0-47.0); HEMOGLOBIN 11.7 g/dl (12.0-15.5); LYMPH # 1.8 10^3/uL (1.5-5.0); LYMPH % 21.7 % (24.0-44.0); MEAN CORPUSCULAR HEMOGLOBIN 27.1 pg (27.0-33.0); MEAN CORPUSCULAR HGB CONC 31.2 g/dl (32.0-36.5); MEAN CORPUSCULAR VOLUME 86.8 fl (80.0-96.0); MONO # 0.6 10^3/uL (0.0-0.8); MONO % 7.2 % (2.0-8.0); NEUTROPHILS # 5.5 10^3/uL (1.5-8.5); NEUTROPHILS % 67.8 % (36.0-66.0); PLATELET COUNT, AUTOMATED 330 10^3/uL (150-450); RED BLOOD COUNT 4.32 10^6/uL (4.00-5.40); WHITE BLOOD COUNT 8.1 10^3/uL (4.0-10.0)
[2024-05-24 18:44] LABS: ALBUMIN 3.8 G/DL (3.2-5.2); ALKALINE PHOSPHATASE 109 U/L (35-104); ALT/SGPT 21 U/L (7.0-40); AST/SGOT 26 U/L (<34); BILIRUBIN,TOTAL 0.6 MG/DL (0.3-1.2); BLOOD UREA NITROGEN 11 MG/DL (9-23); CALCIUM LEVEL 9.7 MG/DL (8.3-10.6); CARBON DIOXIDE LEVEL 30 MMOL/L (20-31); CHLORIDE LEVEL 102 MMOL/L (98-107); CREATININE FOR GFR 0.51 MG/DL (0.55-1.30); GLOMERULAR FILTRATION RATE > 60.0 (>39); GLUCOSE, FASTING 190 MG/DL (74-106); POTASSIUM SERUM 4.4 MMOL/L (3.5-5.1); SODIUM LEVEL 140 MMOL/L (136-145); TOTAL PROTEIN 7.5 G/DL (5.7-8.2)
[2024-05-24 19:31] LABS: HEMOGLOBIN A1c 9.5 % (4.0-6.0)
== END ==
LOC: M SFHCCLAY 11:23
PROVIDERS: ATTEND Physician Assistant
DX: R05.1 Acute cough (principal); R30.0 Dysuria; Z79.899 Other long term (current) drug therapy

== ENCOUNTER → 2024-05-28 | Outpatient (CLI) | payer OTHER, MEDICAID | LOC: M RAD 14:47 | PROVIDERS: ATTEND Nurse Practitioner Family | DX: R91.8 Other nonspecific abnormal finding of lung field (principal); F17.210 Nicotine dependence, cigarettes, uncomplicated ==

== ENCOUNTER → 2024-09-12 | Outpatient (REF) | payer MEDICARE, MEDICAID ==
[~2024-09-12] MED LIST changes: +ATOR80TA59 PO; -ESSE250T PO; +MAGN250T17 PO; +MAGN400T2 PO; +VIBE75TA PO
[2024-09-12 16:07] LABS: APPEARANCE, URINE CLOUDY (CLEAR); BACTERIA, URINE AUTO 1+ (NEGATIVE); BILIRUBIN, URINE AUTO NEGATIVE (NEGATIVE); BLOOD, URINE BLOOD NEGATIVE (NEGATIVE); GLUCOSE, URINE (UA) AUTO 2+ mg/dL (NEGATIVE); KETONE, URINE AUTO NEGATIVE (NEGATIVE); LEUKOCYTE ESTERASE, URINE AUTO 1+ (NEGATIVE); NITRITE, URINE AUTO NEGATIVE (NEGATIVE); PROTEIN, URINE AUTO 1+ mg/dL (NEGATIVE); RBC, URINE AUTO 2 /HPF (0-3); SPECIFIC GRAVITY URINE AUTO 1.014 (1.002-1.035); SQUAMOUS EPITHELIAL CELL UR AU 13 /HPF (0-6); TRIPLE PHOSPHATE CRYSTALS SMALL; UROBILINOGEN, URINE AUTO 0.2 mg/dL (0.0-2.0); WBC, URINE AUTO 3 /HPF (0-3); YEAST LIKE CELL URINE AUTO SMALL
== END ==
LOC: M SMT 15:25
PROVIDERS: ATTEND Nurse Practitioner Family
DX: N39.41 Urge incontinence (principal)

== ENCOUNTER → 2024-09-20 | Outpatient (CLI) | payer MEDICARE, MEDICAID | LOC: M PLAIMG 10:31 | PROVIDERS: ATTEND Nurse Practitioner Family | DX: R91.1 Solitary pulmonary nodule (principal); I51.89 Other ill-defined heart diseases ==

== ENCOUNTER → 2024-10-05 | Outpatient (REF) | payer MEDICARE, MEDICAID | LOC: M SFHCCLAY 16:33 | PROVIDERS: ATTEND Physician Assistant | DX: R30.0 Dysuria (principal) ==